=== PATIENT | male | born 1955 | race Caucasian/White ===

== ENCOUNTER 2020-03-30 06:30 | Outpatient (RCR) | payer BC, OTHER ==
[~2020-03-30] VITALS: Ht 182.9 cm; Wt 70.5 kg
[~2020-03-30 06:30] MED LIST: AMLO5TAB9 PO; APIX5TAB PO; SILD25TA PO; TADA5TAB2 PO
== END 2020-03-30 15:43 | disposition home or self-care (01) ==
LOC: PREOP 06:30
PROVIDERS: ATTEND Surgery
DX: Z01.818 Encounter for other preprocedural examination (principal); Z11.59 Encounter for screening for other viral diseases
CPT/HCPCS: 87635

== ENCOUNTER 2020-05-04 09:21 | Outpatient (RCR) | payer OTHER ==
[~2020-05-04] VITALS: Ht 182 cm; Wt 70.4 kg
== END 2020-05-04 12:53 | disposition home or self-care (01) ==
LOC: PREOP 09:21
PROVIDERS: ATTEND Surgery
DX: Z01.818 Encounter for other preprocedural examination (principal); Z11.59 Encounter for screening for other viral diseases
CPT/HCPCS: 87635

== ENCOUNTER 2020-05-08 07:47 | Day surgery (SDC) | payer OTHER ==
[2020-05-08] VITALS (11 sets, daily range): BP systolic 119–180; BP diastolic 69–96
[~2020-05-08] VITALS: Ht 182 cm; Wt 70.4 kg
[2020-05-08] MEDS ORDERED: LACTATED RINGERS 1,000 ML IV ONE (07:52)
[2020-05-08] MEDS ORDERED: LACTATED RINGERS 1,000 ML IV STA (07:57)
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
--- OUTSIDE RECORDS SUMMARY | 2020-05-08 08:01 | XMS REPORT ---
Author Author Karrie ROGERS Organization 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 248265962 Problem Vasculogenic erectile dysfun ction, 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 Active 979485787 Problem Other cardiac arrhythmia I49.8 Activ e [id number] ALLERGIES No Information ENCOUNTERS Encounter Location Date Diagnosis [place] [address] [address] Nov, [place] [address] [address] Nov, [place] [address] [address] Oct, Erectile dysfunction, unspecified erecti le dysfunction type N52.9 [place] [address] [address] Apr, Vasculogenic erectile dysfunction, unspe cified vasculogenic erectile dysfunction type N52.9 [place] [address] [address] Oct, Atrial fibrillation, chronic I48.2 and E rectile dysfunction, unspecified erectile dysfunction type N52.9 [place] [address] [address] Aug, [place] [address] [address] March, Hypertension, benign I10 [place] [address] [address] March, Hypertension, benign I10 [place] [address] [address] Dec, [place] [address] [address] Nov, Other cardiac arrhythmia I49.[address] [address] Apr, Vasculogenic erectile dysfunction, unspe cified vasculogenic erectile dysfunction type N52.9 [place] [address] [address] Feb, [address] [address] Oct, Combined arterial insufficiency and anthony charlotte-venous occlusive erectile dysfunction N52.[address] [address] Oct, Atrial fibrillation, chronic I48.2 and E ssential (primary) hypertension I10 [address] [address] Sep, Encounter for immunization Z23 [address] [address] Jul, Essential hypertension I10 and Chronic a trial fibrillation I48.[address] [address] Jun, [address] [address] May, Basal cell carcinoma of skin of trunk, e xcept scrotum 173.51 ; Family history of colon cancer V16.0 and ED (erectile dysfunction) 607.[address] [place] [address] May, [facility] history of colon cancer V16.0 [facility] [address] [id number] [place] [address] May, Family history of colon cancer V16.0 and Erectile dysfunction 607.84 [facility] [address] [place] [id number] [place] [address] Apr, [facility] [id number] [place] [address] Feb, [facility] [address] [place] [address] [id number] [place] [address] Dec, [facility] [address] [place] [address] [id number] [place] [address] Dec, [facility] [address] [place] [address] [id number] [place] [address] Sep, [facility] [address] [place] [address] [id number] [place] [address] Sep, [facility] [address] [id number] [place] [address] Aug, [facility] [id number] [place] [address] Aug, [facility] [address] [id number] [place] [address] Aug, [facility] [address] [address] [id number] [place] [address] Aug, [facility] [address] [id number] [place] [address] Aug, [facility] [address] [place] [id number] [place] [address] Aug, [facility] [address] [place] [address] [id number] [place] [address] Feb, [facility] [address] [place] [id number] [place] [address] Feb, [facility] [address] [id number] [place] [address] Dec, [facility] [address] [id number] [place] [address] Dec, [facility] [address] [id number] [place] [address] Oct, [facility] [address] [id number] [place] [address] Oct, [facility] [address] [id number] [place] [address] Sep, [facility] [address] [id number] [place] [address] Sep, [facility] [address] [id number] [place] [address] Aug, [facility] [address] [place] [id number] [place] [address] Aug, [facility] [address] [id number] [place] [address] Jun, [facility] [address] [id number] [place] [address] March, [facility] [address] [id number] [place] [address] March, [facility] [address] [id number] [place] [address] March, [facility] [address] [id number] [place] [address] March, [facility] [address] [id number] [place] [address] March, [facility] [address] [id number] [place] [address] Feb, [facility] [address] [id number] [place] [address] Dec, [facility] [address] [id number] [place] [address] Nov, [facility] [address] [id number] [place] [address] Aug, [facility] [address] [id number] [place] [address] Aug, [facility] [address] [id number] [place] [address] Jun, [facility] [address] [place] [id number] [place] [address] Jun, [facility] [address] [id number] [place] [address] Jun, [facility] [address] [place] [id number] [place] [address] Jun, [facility] [address] [id number] [place] [address] Apr, [facility] [address] [place] [id number] [place] [address] Apr, [facility] [address] [id number] [place] [address] Feb, [facility] [address] [id number] [place] [address] Feb, IMMUNIZATIONS No Known Immunizations SOCIAL HISTORY [...]
--- OUTSIDE RECORDS SUMMARY | 2020-05-08 08:01 | XMS REPORT ---
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 023971393 Problem Vasculogenic erectile dysfun ction, 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 Active 201211072 Problem Other cardiac arrhythmia I49.8 Activ e [id number] ALLERGIES No Information ENCOUNTERS Encounter Location Date Diagnosis [place] [address] [address] Nov, [place] [address] [address] Nov, [place] [address] [address] Oct, Erectile dysfunction, unspecified erecti le dysfunction type N52.9 [place] [address] [address] Apr, Vasculogenic erectile dysfunction, unspe cified vasculogenic erectile dysfunction type N52.9 [place] [address] [address] Oct, Atrial fibrillation, chronic I48.2 and E rectile dysfunction, unspecified erectile dysfunction type N52.9 [place] [address] [address] Aug, [place] [address] [address] March, Hypertension, benign I10 [place] [address] [address] March, Hypertension, benign I10 [place] [address] [address] Dec, [place] [address] [address] Nov, Other cardiac arrhythmia I49.[address] [address] Apr, Vasculogenic erectile dysfunction, unspe cified vasculogenic erectile dysfunction type N52.9 [place] [address] [address] Feb, [address] [address] Oct, Combined arterial insufficiency and anthony charlotte-venous occlusive erectile dysfunction N52.[address] [address] Oct, Atrial fibrillation, chronic I48.2 and E ssential (primary) hypertension I10 [address] [address] Sep, Encounter for immunization Z23 [address] [address] Jul, Essential hypertension I10 and Chronic a trial fibrillation I48.[address] [address] Jun, [address] [address] May, Basal cell carcinoma of skin of trunk, e xcept scrotum 173.51 ; Family history of colon cancer V16.0 and ED (erectile dysfunction) 607.[address] [place] [address] May, Family history of colon cancer V16.0 [facility] [address] [id number] [place] [address] May, Family history of colon cancer V16.0 and Erectile dysfunction 607.84 [facility] [address] [id number] [place] [address] Apr, [facility] [address] [place] [id number] [place] [address] Feb, [facility] [address] [place] [address] [id number] [place] [address] Dec, [facility] [address] [place] [id number] [place] [address] Dec, [facility] [address] [place] [address] [id number] [place] [address] Sep, [facility] [address] [place] [address] [id number] [place] [address] Sep, [facility] [address] [place] [id number] [place] [address] Aug, [facility] [address] [place] [address] [id number] [place] [address] Aug, [facility] [address] [place] [id number] [place] [address] Aug, [facility] [address] [place] [id number] [place] [address] Aug, [facility] [address] [id number] [place] [address] Aug, [facility] [address] [place] [id number] [place] [address] Aug, [facility] [address] [place] [id number] [place] [address] Feb, [facility] [address] [place] [address] [id number] [place] [address] Feb, [facility] [address] [id number] [place] [address] Dec, [facility] [address] [id number] [place] [address] Dec, [facility] [address] [id number] [place] [address] Oct, [facility] [address] [id number] [place] [address] Oct, [facility] [address] [id number] [place] [address] Sep, [facility] [address] [id number] [place] [address] Sep, [facility] [address] [id number] [place] [address] Aug, [facility] [address] [place] [id number] [place] [address] Aug, [facility] [address] [id number] [place] [address] Jun, [facility] [address] [id number] [place] [address] March, [facility] [address] [id number] [place] [address] March, [facility] [address] [id number] [place] [address] March, [facility] [address] [id number] [place] [address] March, [facility] [address] [id number] [place] [address] March, [facility] [address] [id number] [place] [address] Feb, [facility] [address] [id number] [place] [address] Dec, [facility] [address] [id number] [place] [address] Nov, [facility] [address] [id number] [place] [address] Aug, [facility] [address] [id number] [place] [address] Aug, [facility] [address] [id number] [place] [address] Jun, [facility] [id number] [place] [address] Jun, [facility] [address] [id number] [place] [address] Jun, [facility] [address] [id number] [place] [address] Jun, [facility] [address] [id number] [place] [address] Apr, [facility] [address] [place] [id number] [place] [address] Apr, [facility] [address] [id number] [place] [address] Feb, [facility] [address] [id number] [place] [address] Feb, IMMUNIZATIONS No Known Immunizations SOCIAL HISTORY [...]
--- OUTSIDE RECORDS SUMMARY | 2020-05-08 08:01 | XMS REPORT ---
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 [address] [place] [id number] [address] [place] [address] Jan, [facility] [address] [place] [id number] [place] [phone] Nov, [facility] [address] [place] [id number] [place] [address] Nov, [place] [address] [place] [id number] [address] [place] [phone] Oct, Erectile dysfunction, unspec ified erectile dysfunction type N52.9 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 [address] [facility] [id number] [address] [place] [address] Oct, Atrial fibrillation, chronic I48.2 and Erectile dysfunction, unspecified erectile dysfunction type N52.9 [facility] [address] [facility] [id number] [address] [place] [phone] Aug, [facility] [address] [facility] [id number] [address] [place] [address] March, Hypertension, benign I10 [place] [address] [facility] [id number] [place] [phone] March, Hypertension, benign I10 [facility] [address] [place] [id number] [address] [place] [phone] Dec, [facility] [address] [facility] [id number] [address] [place] [phone] Nov, Other cardiac arrhythmia I49 .8 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 [address] [facility] [id number] [address] [place] [phone] 15 Oct, 2016 Atrial fibrillation, chronic I48.2 and Essential (primary) hypertension I10 [facility] [address] [facility] [id number] [address] [place] [address] 17 Sep, 2016 Encounter for immunization Z 23 [facility] [address] [place] [id number] [address] [place] [phone] Jul, Essential hypertension I10 a nd Chronic atrial fibrillation I48.2 [facility] [address] [facility] [id number] [address] [place] [phone] Jun, [facility] [address] [facility] [id number] [address] [place] [address] May, Basal cell carcinoma of skin of trunk, except scrotum 173.51 ; Family history of colon cancer V16.0 and ED (erectile dysfunction) 607.84 [facility] [address] [id number] [address] [place] [phone] May, Family history of colon canc er V16.0 [facility] [address] [facility] [id number] [address] [place] [phone] May, Family history of colon canc er V16.0 and Erectile dysfunction 607.84 [facility] [address] [facility] [id number] [address] [place] [address] Apr, [facility] [address] [facility] [id number] [address] [place] [phone] Feb, [facility] [address] [facility] [id number] [address] [place] [phone] Dec, [facility] [address] [facility] [id number] [address] [place] [phone] Dec, [facility] [address] [facility] [id number] [address] [place] [phone] Sep, [facility] [address] [facility] [id number] [address] [place] [phone] Sep, [facility] [address] [facility] [id number] [address] [place] [address] Aug, [facility] [address] [facility] [id number] [address] [place] [address] Aug, [facility] [address] [facility] [id number] [address] [place] [phone] Aug, [facility] [address] [id number] [address] [place] [address], [place] [address] Aug, [facility] [address] [id number] [address] [place] [address], [place] [address] Aug, [facility] [address] [id number] [address] [place] [address], [place] [address] Aug, [facility] [address] [id number] [address] [place] [address], [place] [address] Feb, [facility] [address] [id number] [address] [place] [address], [place] [address] Feb, [facility] [address] [id number] [address] [place] [address], [place] [address] Dec, [facility] [address] [id number] [address] [place] [address], [place] [address] Dec, [facility] [address] [id number] [address] [place] [address], [place] [address] Oct, [facility] [address] [id number] [address] [place] [address], [place] [address] Oct, [facility] [address] [id number] [address] [place] [address], [place] [address] Sep, [facility] [address] [id number] [address] [place] [address], [place] [address] Sep, [facility] [address] [id number] [address] [place] [address], [place] [address] Aug, [facility] [address] [id number] [address] [place] [address], [place] [address] Aug, [facility] [address] [id number] [address] [place] [address], [place] [address] Jun, [facility] [address] [id number] [address] [place] [address], [place] [address] March, [facility] [address] [id number] [address] [place] [address], [place] [address] March, [facility] [address] [id number] [address] [place] [address], [place] [address] March, [facility] [address] [id number] [address] [place] [address], [place] [address] March, [facility] [address] [id number] [address] [place] [address], [place] [address] March, [facility] [address] [id number] [address] [place] [address], [place] [address] Feb, [facility] [address] [id number] [address] [place] [address], [place] [address] Dec, [facility] [address] [id number] [address] [place] [address], [place] [address] Nov, [facility] [address] [id number] [address] [place] [address], [place] [address] Aug, [facility] [address] [id number] [address] [place] [address], [place] [address] Aug, [facility] [address] [id number] [address] [place] [address], [place] [address] Jun, [facility] [address] [id number] [address] [place] [address], [place] [address] Jun, [facility] [address] [id number] [address] [place] [address], [place] [address] Jun, [facility] [address] [id number] [address] [place] [address], [place] [address] Jun, [facility] [address] [id number] [address] [place] [address], [place] [address] Apr, [facility] [address] [id number] [address] [place] [address], [place] [address] Apr, [facility] [address] [id number] [address] [place] [address], [place] [address] Feb, [facility] [address] [facility] [id number] [address] [place] [address] Feb, IMMUNIZATIONS No Known Immunizations SOCIAL HISTORY Never Assessed REASON FOR VISIT PLAN OF CARE VITAL SIGNS Height 72 in 2012-05-03 Weight 153.44 lbs 2012-05-03 Temperature 97.4 degrees Fahrenheit 2012-05-03 Heart Rate 70 bpm 2012-05-03 Respiratory Rate 18 2012-05-03 Blood pressure systolic 110 mmHg 2012-05-03 Blood pressure diastolic 90 mmHg 2012-05-03 MEDICATIONS Unknown Medications RESULTS No Results PROCEDURES Procedure Date Ordered Result Body Site COMPLETE CBC W/AUTO DIFF WBC May 03, 2012 ASSAY THYROID STIM HORMONE May 03, 2012 VENIPUNCT, ROUTINE* May 03, 2012 INSTRUCTIONS MEDICATIONS ADMINISTERED No Known Medications MEDICAL [...]
--- OUTSIDE RECORDS SUMMARY | 2020-05-08 08:01 | XMS REPORT ---
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 Active 860987676 Problem Vasculogenic erectile dysfun ction, 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 Active 283131380 Problem Other cardiac arrhythmia I49.8 Activ e [id number] ALLERGIES No Information ENCOUNTERS Encounter Location Date Diagnosis [place] [address] [place] [id number] [address] [place] [address] Apr, Vasculogenic erectile dysfun ction, 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 [facility] [address] [place] [id number] [address] [place] [address] Oct, Atrial fibrillation, chronic I48.2 and Erectile dysfunction, unspecified erectile dysfunction type N52.9 [facility] [address] [facility]NOTE 3] [id number] [address] [place] [address] Aug, [facility] [address] [place] [id number] [address] [place] [address] March, Hypertension, benign I10 [facility] [address] [place] [id number] [address] [place] [address] March, Hypertension, benign I10 [facility] [address] [place] [id number] [address] [place] [address] Dec, [place] [address] [facility]NOTE 3] [id number] [address] [place] [address] Nov, Other cardiac arrhythmia I49 .8 [place] [address] [facility]NOTE 3] [id number] [address] [place] [address] Apr, Vasculogenic erectile dysfun ction, 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 [place] [address] [place] [id number] [place] [address] Feb, [place] [address] [place] [id number] [place] [address] Oct, 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 [place] [address] [place] [id number] [place] [address] 15 Oct, 2016 Atrial fibrillation, chronic I48.2 and Essential (primary) hypertension I10 [place] [address] [address] Sep, Encounter for immunization Z 23 [place] [address] [place] [id number] [place] [phone] 08 Jul, 2016 Essential hypertension I10 a nd Chronic atrial fibrillation I48.2 [place] [address] [place] [id number] [place] [address] Jun, [place] [address] [place] [id number] [place] [address] May, Basal cell carcinoma of skin of trunk, except scrotum 173.51 ; Family history of colon cancer V16.0 and ED (erectile dysfunction) 607.84 [place] [address] [place] [id number] [address] [place] [address] May, Family history of colon canc er V16.0 [place] [address] [place] [id number] [address] [place] [address] May, Family history of colon canc er V16.0 and Erectile dysfunction 607.84 [facility] [address] [id number] [address] [place] [address] Apr, [facility] [address] [id number] [address] [place] [address] Feb, [facility] [address] [id number] [address] [place] [address] Dec, [facility] [address] [id number] [address] [place] [address] Dec, [facility] [address] [id number] [address] [place] [address] Sep, [facility] [address] [id number] [address] [place] [address] Sep, [facility] [address] [id number] [address] [place] [address] Aug, [facility] [address] [id number] [address] [place] [phone] Aug, [facility] [address] [id number] [address] [place] [address] Aug, [facility] [address] [id number] [address] [place] [address] Aug, [facility] [address] [id number] [address] [place] [address] Aug, [facility] [address] [id number] [address] [place] [phone] Aug, [facility] [address] [id number] [address] [place] [phone] Feb, [facility] [address] [id number] [address] [place] [phone] Feb, [facility] [address] [id number] [address] [place] [phone] Dec, [facility] [address] [id number] [address] [place] [address], [place] [address] Dec, [facility] [address] [id number] [address] [place] [address], [place] [address] Oct, [facility] [address] [id number] [address] [place] [address], [place] [address] Oct, [facility] [address] [id number] [address] [place] [address], [place] [address] Sep, [facility] [address] [id number] [address] [place] [address], [place] [address] Sep, [facility] [address] [id number] [address] [place] [address], [place] [address] Aug, [facility] [address] [id number] [address] [place] [address], [place] [address] Aug, [facility] [address] [id number] [address] [place] [address], [place] [address] Jun, [facility] [address] [id number] [address] [place] [address], [place] [address] March, [facility] [address] [id number] [address] [place] [address], [place] [address] March, [facility] [address] [id number] [address] [place] [address], [place] [address] March, [facility] [address] [id number] [address] [place] [address], [place] [address] March, [facility] [address] [id number] [address] [place] [address], [place] [address] March, [facility] [address] [id number] [address] [place] [address], [place] [address] Feb, [facility] [address] [id number] [address] [place] [address], [place] [address] Dec, [facility] [address] [id number] [address] [place] [address], [place] [address] Nov, [facility] [address] [id number] [address] [place] [address] Aug, [facility] [address] [id number] [address] [place] [address] Aug, [facility] [address] [id number] [address] [place] [address] Jun, [facility] [address] [id number] [address] [place] [address] Jun, [facility] [address] [id number] [address] [place] [address] Jun, [facility] [address] [id number] [address] [place] [address] Jun, [facility] [address] [id number] [address] [place] [address] Apr, [facility] [address] [id number] [address] [place] [address] Apr, [facility] [address] [id number] [address] [place] [address] Feb, [facility] [address] [id number] [address] [place] [phone] Feb, IMMUNIZATIONS No Known Immunizations SOCIAL HISTORY Never Assessed REASON FOR VISIT PLAN OF CARE VITAL SIGNS Height 72 in 2014-09-22 Weight 154 lbs 2014-09-22 Temperature 98 degrees Fahrenheit 2014-09-22 Heart Rate 70 bpm 2014-09-22 Respiratory Rate 18 2014-09-22 Blood pressure systolic 140 mmHg 2014-09-22 Blood pressure diastolic 70 mmHg 2014-09-22 MEDICATIONS No Known Medications RESULTS No Results [...]
--- OUTSIDE RECORDS SUMMARY | 2020-05-08 08:01 | XMS REPORT ---
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 305491479 Problem Vasculogenic erectile dysfun ction, 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 Active 265118725 Problem Other cardiac arrhythmia I49.8 Activ e [id number] ALLERGIES No Information ENCOUNTERS Encounter Location Date Diagnosis [place] [address] [address] 14 Feb, 2020 Hypertension, benign I10 [place] [address] [address] [place] [id number] [address] [place] [address] 13 Feb, 2020 Hypertension, benign I10 and Erectile dysfunction, unspecified erectile dysfunction type N52.9 [facility] [address] [place] [id number] [address] [place] [address] Jan, [facility] [address] [place] [id number] [address] [place] [address] Nov, [facility] [address] [place] [id number] [address] [place] [address] Nov, [facility] [address] [place] [id number] [address] [place] [address] Oct, Erectile dysfunction, unspec ified erectile dysfunction type N52.9 [facility] [address] [facility] [id number] [address] [place] [address] Apr, Vasculogenic erectile dysfun ction, 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 [facility] [address] [facility] [id number] [address] [place] [address] Oct, Atrial fibrillation, chronic I48.2 and Erectile dysfunction, unspecified erectile dysfunction type N52.9 [facility] [address] [facility] [id number] [address] [place] [address] Aug, [facility] [address] [facility] [id number] [address] [place] [address] March, Hypertension, benign I10 [facility] [address] [facility] [id number] [address] [place] [address] March, Hypertension, benign I10 [facility] [address] [facility] [id number] [address] [place] [address] Dec, [facility] [address] [facility] [id number] [address] [place] [address] Nov, Other cardiac arrhythmia I49 .8 [facility] [address] [facility] [id number] [address] [place] [address] Apr, Vasculogenic erectile dysfun ction, 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 [facility] [address] [facility] [id number] [address] [place] [address] Feb, [facility] [address] [facility] [id number] [address] [place] [address] Oct, 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 [facility] [address] [facility] [id number] [address] [place] [address] Oct, Atrial fibrillation, chronic I48.2 and Essential (primary) hypertension I10 [facility] [address] [facility] [id number] [address] [place] [address] Sep, Encounter for immunization Z 23 [facility] [address] [id number] [address] [place] [id number] 08 Jul, 2016 Essential hypertension I10 a nd Chronic atrial fibrillation I48.2 [facility] [address] [facility] [id number] [address] [place] [phone] Jun, [facility] [address] [facility] [id number] [address] [place] [address] May, Basal cell carcinoma of skin of trunk, except scrotum 173.51 ; Family history of colon cancer V16.0 and ED (erectile dysfunction) 607.84 [facility] [address] [facility] [id number] [address] [place] [address] May, Family history of colon canc er V16.0 [facility] [address] [facility] [id number] [address] [place] [address] May, Family history of colon canc er V16.0 and Erectile dysfunction 607.84 [facility] [address] [id number] [address] [place] [address] Apr, [facility] [address] [facility] [id number] [address] [place] [address] Feb, [facility] [address] [facility] [id number] [address] [place] [address] Dec, [facility] [address] [facility] [id number] [address] [place] [address] Dec, [facility] [address] [facility] [id number] [address] [place] [address] Sep, [facility] [address] [facility] [id number] [address] [place] [address] Sep, [facility] [address] [facility] [id number] [address] [place] [address] Aug, [facility] [address] [facility] [id number] [address] [place] [address] Aug, [facility] [address] [id number] [address] [place] [address], [place] [address] Aug, [facility] [address] [id number] [address] [place] [address], [place] [address] Aug, [facility] [address] [id number] [address] [place] [address], [place] [address] Aug, [facility] [address] [id number] [address] [place] [address], [place] [address] Aug, [facility] [address] [id number] [address] [place] [address], [place] [address] Feb, [facility] [address] [id number] [address] [place] [address], [place] [address] Feb, [facility] [address] [id number] [address] [place] [address], [place] [address] Dec, [facility] [address] [id number] [address] [place] [address], [place] [address] Dec, [facility] [address] [id number] [address] [place] [address], [place] [address] Oct, [facility] [address] [id number] [address] [place] [address], [place] [address] Oct, [facility] [address] [id number] [address] [place] [address], [place] [address] Sep, [facility] [address] [id number] [address] [place] [address], [place] [address] Sep, [facility] [address] [id number] [address] [place] [address], [place] [address] Aug, [facility] [address] [id number] [address] [place] [address], [place] [address] Aug, [facility] [address] [id number] [address] [place] [address], [place] [address] Jun, [facility] [address] [id number] [address] [place] [address], [place] [address] March, [facility] [address] [id number] [address] [place] [address], [place] [address] March, [facility] [address] [id number] [address] [place] [address], [place] [address] March, [facility] [address] [id number] [address] [place] [address], [place] [address] March, [facility] [address] [id number] [address] [place] [address], [place] [address] March, [facility] [address] [id number] [address] [place] [address], [place] [address] Feb, [facility] [address] [id number] [address] [place] [address], [place] [address] Dec, [facility] [address] [id number] [address] [place] [address], [place] [address] Nov, [facility] [address] [id number] [address] [place] [address], [place] [address] Aug, [facility] [address] [id number] [address] [place] [address], [place] [address] Aug, [facility] [address] [id number] [address] [place] [address], [place] [address] Jun, [facility] [address] [id number] [address] [place] [address], [place] [address] Jun, [facility] [address] [id number] [address] [place] [address], [place] [address] Jun, [facility] [address] [id number] [address] [place] [address], [place] [address] Jun, [facility] [address] [id number] [address] [place] [address], [place] [address] Apr, [facility] [address] [id number] [address] [place] [address], [place] [address] Apr, [facility] [address] [id number] [address] [address] Feb, [facility] [address] [facility] [id number] [place] [address] Feb, IMMUNIZATIONS No Known Immunizations SOCIAL HISTORY [...]
--- OUTSIDE RECORDS SUMMARY | 2020-05-08 08:01 | XMS REPORT ---
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 Active 084454583 Problem Vasculogenic erectile dysfun ction, 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 Active 977693807 Problem Other cardiac arrhythmia I49.8 Activ e [id number] ALLERGIES No Information ENCOUNTERS Encounter Location Date Diagnosis [place] [address] [address] Nov, [place] [address] [address] Nov, [place] [address] [address] Oct, Erectile dysfunction, unspecified erecti le dysfunction type N52.9 [place] [address] [address] Apr, Vasculogenic erectile dysfunction, unspe cified vasculogenic erectile dysfunction type N52.9 [place] [address] [address] Oct, Atrial fibrillation, chronic I48.2 and E rectile dysfunction, unspecified erectile dysfunction type N52.9 [place] [address] [address] Aug, [place] [address] [address] March, Hypertension, benign I10 [place] [address] [address] March, Hypertension, benign I10 [place] [address] [address] Dec, [place] [address] [address] Nov, Other cardiac arrhythmia I49.[address] [address] Apr, Vasculogenic erectile dysfunction, unspe cified vasculogenic erectile dysfunction type N52.9 [place] [address] [address] Feb, [address] [address] Oct, Combined arterial insufficiency and anthony charlotte-venous occlusive erectile dysfunction N52.[address] [address] Oct, Atrial fibrillation, chronic I48.2 and E ssential (primary) hypertension I10 [address] [address] Sep, Encounter for immunization Z23 [address] [address] Jul, Essential hypertension I10 and Chronic a trial fibrillation I48.[address] [address] Jun, [address] [address] May, Basal cell carcinoma of skin of trunk, e xcept scrotum 173.51 ; Family history of colon cancer V16.0 and ED (erectile dysfunction) 607.[address] [place] [address] May, Family history of colon cancer V16.0 [facility] [address] [id number] [place] [address] May, Family history of colon cancer V16.0 and Erectile dysfunction 607.84 [facility] [address] [place] [id number] [place] [address] Apr, [facility] [address] [place] [id number] [place] [address] Feb, [facility] [address] [place] [id number] [place] [address] Dec, [facility] [address] [place] [id number] [place] [address] Dec, [facility] [address] [place] [id number] [place] [address] Sep, [facility] [address] [place] [id number] [place] [address] Sep, [facility] [address] [place] [id number] [place] [address] Aug, [facility] [address] [place] [id number] [place] [address] Aug, [facility] [address] [place] [id number] [place] [address] Aug, [facility] [address] [place] [id number] [place] [address] Aug, [facility] [address] [id number] [place] [address] Aug, [facility] [address] [place] [id number] [place] [address] Aug, [facility] [address] [place] [id number] [place] [address] Feb, [facility] [address] [place] [id number] [place] [address] Feb, [facility] [address] [id number] [place] [address] Dec, [facility] [address] [id number] [place] [address] Dec, [facility] [address] [id number] [place] [address] Oct, [facility] [address] [id number] [place] [address] Oct, [facility] [address] [id number] [place] [address] Sep, [facility] [address] [id number] [place] [address] Sep, [facility] [address] [id number] [place] [address] Aug, [facility] [address] [place] [id number] [place] [address] Aug, [facility] [address] [id number] [place] [address] Jun, [facility] [address] [id number] [place] [address] March, [facility] [address] [id number] [place] [address] March, [facility] [address] [id number] [place] [address] March, [facility] [address] [id number] [place] [address] March, [facility] [address] [id number] [place] [address] March, [facility] [address] [id number] [place] [address] Feb, [facility] [address] [id number] [place] [address] Dec, [facility] [address] [id number] [place] [address] Nov, [facility] [address] [id number] [place] [address] Aug, [facility] [address] [id number] [place] [address] Aug, [facility] [address] [id number] [place] [address] Jun, [facility] [address] [place] [id number] [place] [address] Jun, [facility] [address] [id number] [place] [address] Jun, [facility] [address] [place] [id number] [place] [address] Jun, [facility] [address] [id number] [place] [address] Apr, [facility] [address] [place] [id number] [place] [address] Apr, [facility] [address] [id number] [place] [address] Feb, [facility] [address] [id number] [place] [address] Feb, IMMUNIZATIONS No Known Immunizations SOCIAL HISTORY [...]
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
--- OUTSIDE RECORDS SUMMARY | 2020-05-08 08:02 | XMS REPORT ---
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 Active 597251211 Problem Essential (primary) hypertension I10 Active 08029229 Problem Other cardiac arrhythmia I49.8 Activ e 43792375 Problem Vasculogenic erectile dysfun ction, 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 Active 558703615 ALLERGIES No Known Allergies ENCOUNTERS Encounter Location Date Diagnosis [facility] [address] [address] Oct, Atrial fibrillation, chronic I48.2 and Erectile dysfunction, unspecified erectile dysfunction type N52.9 [facility] [address] [id number] [address] [place] [address] Aug, [facility] [address] [id number] [address] [place] [address] March, Hypertension, benign I10 [facility] [address] [id number] [address] [place] [address] March, Hypertension, benign I10 [facility] [address] [id number] [address] [place] [address] Dec, [facility] [address] [id number] [address] [place] [address] 18 Dmitry, 2018 Other cardiac arrhythmia I49 .8 [place] [address] [address] [facility] [id number] [address] [place] [address] Apr, Vasculogenic erectile dysfun ction, 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 [place] [address] [address] [facility] [id number] [address] [place] [address] Feb, [place] [address] [address] [place] [id number] [address] [place] [address] Oct, 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 [place] [address] [address] [facility] [id number] [address] [place] [address] Oct, Atrial fibrillation, chronic I48.2 and Essential (primary) hypertension I10 [place] [address] [address] [place] [id number] [address] [place] [address] Sep, Encounter for immunization Z 23 [place] [address] [place] [id number] [address] [place] [address] Jul, Essential hypertension I10 a nd Chronic atrial fibrillation I48.2 [place] [address] [place] [id number] [address] [place] [address] Jun, [place] [address] [place] [id number] [address] [place] [address] May, Basal cell carcinoma of skin of trunk, except scrotum 173.51 ; Family history of colon cancer V16.0 and ED (erectile dysfunction) 607.84 [place] [address] [address] [facility] [id number] [address] [place] [address] May, Family history of colon canc er V16.0 [place] [address] [address] [place] [id number] [address] [place] [address] May, Family history of colon canc er V16.0 and Erectile dysfunction 607.84 [place] [address] [address] [place] [id number] [address] [place] [address] Apr, [facility] [address] [id number] [address] [place] [address], [place] [address] Feb, [facility] [address] [id number] [address] [place] [address], [place] [address] Dec, [facility] [address] [id number] [address] [place] [address], [place] [address] Dec, [facility] [address] [id number] [address] [place] [address], [place] [address] Sep, [facility] [address] [id number] [address] [place] [address], [place] [address] Sep, [facility] [address] [id number] [address] [place] [address], [place] [address] Aug, [facility] [address] [id number] [address] [place] [address], [place] [address] Aug, [facility] [address] [id number] [address] [place] [address], [place] [address] Aug, [facility] [address] [id number] [address] [place] [address], [place] [address] Aug, [facility] [address] [id number] [address] [place] [address], [place] [address] Aug, [facility] [address] [id number] [address] [place] [address], [place] [address] Aug, [facility] [address] [id number] [address] [place] [address], [place] [address] Feb, [facility] [address] [id number] [address] [place] [address], [place] [address] Feb, [facility] [address] [id number] [address] [place] [address], [place] [address] Dec, [facility] [address] [id number] [address] [place] [address] Dec, [facility] [address] [id number] [address] [place] [address] Oct, [facility] [address] [id number] [address] [place] [address], [place] [address] Oct, [facility] [address] [id number] [address] [place] [address], [place] [address] Sep, [facility] [address] [id number] [address] [place] [address], [place] [address] Sep, [facility] [address] [id number] [address] [place] [address], [place] [address] Aug, [facility] [address] [id number] [address] [place] [address], [place] [address] Aug, [facility] [address] [id number] [address] [place] [address], [place] [address] Jun, [facility] [address] [id number] [address] [place] [address], [place] [address] March, [facility] [address] [id number] [address] [place] [address], [place] [address] March, [facility] [address] [id number] [address] [place] [address], [place] [address] March, [facility] [address] [id number] [address] [place] [address], [place] [address] March, [facility] [address] [id number] [address] [place] [address], [place] [address] March, [facility] [address] [id number] [address] [place] [address], [place] [address] Feb, [facility] [address] [id number] [address] [place] [address], [place] [address] Dec, [facility] [address] [id number] [address] [place] [address], [place] [address] Nov, [facility] [address] [id number] [address] [place] [address], [place] [address] Aug, [facility] [address] [id number] [address] [place] [address] Aug, [facility] [address] [id number] [address] [place] [address] Jun, [facility] [address] [id number] [address] [place] [address] Jun, [facility] [address] [id number] [address] [place] [address] Jun, [facility] [address] [id number] [address] [place] [address] Jun, [facility] [address] [id number] [address] [place] [address] Apr, [facility] [address] [id number] [address] [place] [address] Apr, [facility] [address] [id number] [address] [place] [address] Feb, [facility] [address] [id number] [address] [place] [address] Feb, IMMUNIZATIONS No Known Immunizations SOCIAL HISTORY Never Assessed REASON FOR VISIT ED f/u - Agnes Saini MA f/u PLAN OF CARE VITAL SIGNS Height 72 in 2018-10-27 Weight 161.9 lbs 2018-10-27 Temperature 97.5 degrees Fahrenheit 2018-10-27 Heart Rate 77 bpm 2018-10-27 Respiratory Rate 18 2018-10-27 Oximetry 97 % 2018-10-27 BMI 21.96 kg/m2 2018-10-27 Blood pressure systolic 142 mmHg 2018-10-27 Blood pressure diastolic 68 mmHg 2018-10-27 MEDICATIONS Medication Instructions Dosage Frequency Start Date End Date Duration S tatus Cialis 5MG Oral Once a day 1 tablet 24h Acti ve Eliquis 5 mg Orally 2 times a day 12h Active Amlodipine Besylate 5 mg Orally Once a day 1 tablet 24h 30 days Active RESULTS No Results PROCEDURES No Known procedures [...]
--- OUTSIDE RECORDS SUMMARY | 2020-05-08 08:02 | XMS REPORT ---
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 Active 861264542 Problem Vasculogenic erectile dysfun ction, 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 Active 287905833 Problem Other cardiac arrhythmia I49.8 Activ e [id number] ALLERGIES No Information ENCOUNTERS Encounter Location Date Diagnosis [facility] [address] [id number] [address] [place] [address] Oct, Atrial fibrillation, chronic I48.2 and Erectile dysfunction, unspecified erectile dysfunction type N52.9 [facility] [address] [id number] [address] [place] [address] Aug, [facility] [address] [id number] [address] [place] [address] March, Hypertension, benign I10 [facility] [address] [place] [id number] [address] [place] [address] March, Hypertension, benign I10 [facility] [address] [id number] [address] [place] [address] Dec, [facility] [address] [id number] [address] [place] [address] Nov, Other cardiac arrhythmia I49 .8 [facility] [address] [address] Apr, Vasculogenic erectile dysfun ction, 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 [place] [address] [place] [id number] [address] [place] [address] Feb, [place] [address] [address] [facility] [id number] [address] [place] [address] Oct, 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 [place] [address] [address] [facility] [id number] [address] [place] [address] 15 Oct, 2016 Atrial fibrillation, chronic I48.2 and Essential (primary) hypertension I10 [place] [address] [place] [id number] [address] [place] [address] Sep, Encounter for immunization Z 23 [place] [address] [place] [id number] [address] [place] [address] Jul, Essential hypertension I10 a nd Chronic atrial fibrillation I48.2 [place] [address] [address] [facility] [id number] [address] [place] [address] Jun, [place] [address] [place] [id number] [place] [address] May, Basal cell carcinoma of skin of trunk, except scrotum 173.51 ; Family history of colon cancer V16.0 and ED (erectile dysfunction) 607.84 [place] [address] [place] [id number] [address] [place] [address] May, Family history of colon canc er V16.0 [place] [address] [address] [facility] [id number] [address] [place] [address] May, Family history of colon canc er V16.0 and Erectile dysfunction 607.84 [place] [address] [address] [facility] [id number] [address] [place] [address] Apr, [place] [address] [place] [id number] [address] [place] [address] Feb, [facility] [address] [id number] [address] [place] [address], [place] [address] Dec, [facility] [address] [id number] [address] [place] [address], [place] [address] Dec, [facility] [address] [id number] [address] [place] [address], [place] [address] Sep, [facility] [address] [id number] [address] [place] [address], [place] [address] Sep, [facility] [address] [id number] [address] [place] [address], [place] [address] Aug, [facility] [address] [id number] [address] [place] [address], [place] [address] Aug, [facility] [address] [id number] [address] [place] [address], [place] [address] Aug, [facility] [address] [id number] [address] [place] [address], [place] [address] Aug, [facility] [address] [id number] [address] [place] [address], [place] [address] Aug, [facility] [address] [id number] [address] [place] [address] Aug, [facility] [address] [id number] [address] [place] [address], [place] [address] Feb, [facility] [address] [id number] [address] [place] [address] Feb, [facility] [address] [id number] [address] [place] [address], [place] [address] Dec, [facility] [address] [id number] [address] [place] [address], [place] [address] Dec, [facility] [address] [id number] [address] [place] [address], [place] [address] Oct, [facility] [address] [id number] [address] [place] [address], [place] [address] Oct, [facility] [address] [id number] [address] [place] [address], [place] [address] Sep, [facility] [address] [id number] [address] [place] [address], [place] [address] Sep, [facility] [address] [id number] [address] [place] [address], [place] [address] Aug, [facility] [address] [id number] [address] [place] [address], [place] [address] Aug, [facility] [address] [id number] [address] [place] [address], [place] [address] Jun, [facility] [address] [id number] [address] [place] [address], [place] [address] March, [facility] [address] [id number] [address] [place] [address], [place] [address] March, [facility] [address] [id number] [address] [place] [address], [place] [address] March, [facility] [address] [id number] [address] [place] [address], [place] [address] March, [facility] [address] [id number] [address] [place] [address], [place] [address] March, [facility] [address] [id number] [address] [place] [address], [place] [address] Feb, [facility] [address] [id number] [address] [place] [address], [place] [address] Dec, [facility] [address] [id number] [address] [place] [address], [place] [address] Nov, [facility] [address] [id number] [address] [place] [address], [place] [address] Aug, [facility] [address] [id number] [address] [place] [address], [place] [address] Aug, [facility] [address] [id number] [address] [place] [address] Jun, [facility] [address] [id number] [address] [place] [address] Jun, [facility] [address] [id number] [address] [place] [address] Jun, [facility] [address] [id number] [address] [place] [address] Jun, [facility] [address] [id number] [address] [place] [address] Apr, [facility] [address] [id number] [address] [place] [address] Apr, [facility] [address] [id number] [address] [place] [address] Feb, [facility] [address] [id number] [address] [place] [address] Feb, IMMUNIZATIONS No Known Immunizations SOCIAL HISTORY Never Assessed REASON FOR VISIT [facility] [place] PLAN OF CARE VITAL SIGNS MEDICATIONS No [...]
--- OUTSIDE RECORDS SUMMARY | 2020-05-08 08:02 | XMS REPORT ---
Author Author Karrie ROGERS Organization [facility] Address [address] [place] [address] Care Team Providers Care Manager Personal Name Role Phone PHOEBE ROGERS Unavailable PROBLEMS Type Condition ICD9-CM Code [id number] Code Onset Dates Condition S tatus SNOMED Code Assessment Chronic atrial fibrillation I48.2 Jul, 201 6 Active 578309698 Problem Encounter for removal of sutures V58.32 Active 40798309 Assessment Essential hypertension I10 Jul, Act nya 27570539 Problem Hernia of unspecified site o f abdominal cavity without mention of obstruction or gangrene 553.9 Active 5251 5009 Problem Inguinal hernia without ment ion of obstruction or gangrene, bilateral, (not specified as recurrent) 550.92 Active 18560545 Problem Health examination of defined subpopulation V70.5 Active 385194549 Problem Basal cell carcinoma of skin of trunk, except scrotum 173.51 Active 194639302 Problem Umbilical hernia without mention of obstruction or gangren e 553.1 Active 937716964 Problem Psychosexual dysfunction with inhibited sexual excitement 302.72 Active [id number] ALLERGIES Substance Reaction Event Type Date Status N.K.D.A. Unknown Non Drug Allergy Jul, Unknown SOCIAL HISTORY No smoking Hx information available PLAN OF CARE VITAL SIGNS Height 72 in 2016-07-31 Weight 158.8 lbs 2016-07-31 Heart Rate 68 bpm 2016-07-31 Respiratory Rate 18 2016-07-31 BMI 21.53 kg/m2 2016-07-31 Blood pressure systolic 142 mmHg 2016-07-31 Blood pressure diastolic 98 mmHg 2016-07-31 MEDICATIONS Medication Instructions Dosage Frequency Start Date End Date Duration S tatus Cialis 5 MG Orally every 24 hrs 1 tablet 30 Active Cialis 5 MG Orally Once a day 1 tablet 24h Jul, Sep, 30 day(s) Active Eliquis 5 mg Orally 2 times a day 12h Active Amlodipine Besylate 5 MG Orally Once a day 1 tablet 24h Active RESULTS No Results PROCEDURES Procedure Date Ordered Related Diagnosis Body Site Office Visit, Est Pt., Level 3 Jul 31, 2016 IMMUNIZATIONS No Known Immunizations
--- OUTSIDE RECORDS SUMMARY | 2020-05-08 08:02 | XMS REPORT ---
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 Active 450860754 Problem Vasculogenic erectile dysfun ction, 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 Active 502451905 Problem Other cardiac arrhythmia I49.8 Activ e 43034117 ALLERGIES No Information ENCOUNTERS Encounter Location Date Diagnosis [place] [address] [place] [id number] [place] [phone] Apr, Vasculogenic erectile dysfun ction, 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 [facility] [address] [place] [id number] [place] [phone] Oct, Atrial fibrillation, chronic I48.2 and Erectile dysfunction, unspecified erectile dysfunction type N52.9 [facility] [address] [facility] [id number] [address] [place] [phone] Aug, [facility] [address] [id number] [place] [phone] March, Hypertension, benign I10 [facility] [address] [place] [id number] [place] [phone] March, Hypertension, benign I10 [facility] [address] [id number] [place] [phone] Dec, [place] [address] [facility] [id number] [address] [place] [phone] Nov, Other cardiac arrhythmia I49 .8 [place] [address] [facility] [id number] [address] [place] [address] Apr, Vasculogenic erectile dysfun ction, 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 [place] [address] [place] [id number] [place] [phone] Feb, [place] [address] [place] [id number] [place] [address] Oct, 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 [place] [address] [place] [id number] [place] [phone] 15 Oct, 2016 Atrial fibrillation, chronic I48.2 and Essential (primary) hypertension I10 [place] [address] [address] Sep, Encounter for immunization Z 23 [place] [address] [place] [id number] [place] [phone] 08 Jul, 2016 Essential hypertension I10 a nd Chronic atrial fibrillation I48.2 [place] [address] [place] [id number] [place] [phone] Jun, [place] [address] [place] [id number] [place] [phone] May, Basal cell carcinoma of skin of trunk, except scrotum 173.51 ; Family history of colon cancer V16.0 and ED (erectile dysfunction) 607.84 [place] [address] [place] [id number] [place] [phone] May, Family history of colon canc er V16.0 [place] [address] [place] [id number] [place] [address] May, Family history of colon canc er V16.0 and Erectile dysfunction 607.84 [facility] [address] [id number] [address] [place] [phone] Apr, [facility] [address] [id number] [address] [place] [phone] Feb, [facility] [address] [id number] [address] [place] [phone] Dec, [facility] [address] [id number] [address] [place] [phone] Dec, [facility] [address] [id number] [address] [place] [phone] Sep, [facility] [address] [id number] [address] [place] [phone] Sep, [facility] [address] [id number] [address] [place] [phone] Aug, [facility] [address] [id number] [address] [place] [phone] Aug, [facility] [address] [id number] [address] [place] [phone] Aug, [facility] [address] [id number] [address] [place] [phone] Aug, [facility] [address] [id number] [address] [place] [phone] Aug, [facility] [address] [id number] [address] [place] [phone] Aug, [facility] [address] [id number] [address] [place] [phone] Feb, [facility] [address] [id number] [address] [place] [phone] Feb, [facility] [address] [id number] [address] [place] [phone] Dec, [facility] [address] [id number] [address] [place] [address], [place] [address] Dec, [facility] [address] [id number] [address] [place] [address], [place] [address] Oct, [facility] [address] [id number] [address] [place] [address], [place] [address] Oct, [facility] [address] [id number] [address] [place] [address], [place] [address] Sep, [facility] [address] [id number] [address] [place] [address], [place] [address] Sep, [facility] [address] [id number] [address] [place] [address], [place] [address] Aug, [facility] [address] [id number] [address] [place] [address], [place] [address] Aug, [facility] [address] [id number] [address] [place] [address], [place] [address] Jun, [facility] [address] [id number] [address] [place] [address], [place] [address] March, [facility] [address] [id number] [address] [place] [address], [place] [address] March, [facility] [address] [id number] [address] [place] [address], [place] [address] March, [facility] [address] [id number] [address] [place] [address], [place] [address] March, [facility] [address] [id number] [address] [place] [address], [place] [address] March, [facility] [address] [id number] [address] [place] [address], [place] [address] Feb, [facility] [address] [id number] [address] [place] [address], [place] [address] Dec, [facility] [address] [id number] [address] [place] [address], [place] [address] Nov, [facility] [address] [id number] [address] [place] [phone] Aug, [facility] [address] [id number] [address] [place] [phone] Aug, [facility] [address] [id number] [address] [place] [phone] Jun, [facility] [address] [id number] [address] [place] [phone] Jun, [facility] [address] [id number] [address] [place] [phone] Jun, [facility] [address] [id number] [address] [place] [phone] Jun, [facility] [address] [id number] [address] [place] [phone] Apr, [facility] [address] [id number] [address] [place] [phone] Apr, [facility] [address] [id number] [address] [place] [phone] Feb, [facility] [address] [id number] [address] [place] [phone] Feb, IMMUNIZATIONS Vaccine Route Administration Date Status FLU Vaccine (History) Unknown Sep 12, 2014 Administer ed SOCIAL HISTORY Never Assessed REASON FOR VISIT PLAN OF CARE VITAL SIGNS Height 72 in 2014-09-12 Weight 155.9 lbs 2014-09-12 Temperature 97.3 degrees Fahrenheit 2014-09-12 Heart Rate 70 bpm 2014-09-12 Respiratory Rate 16 2014-09-12 Blood pressure systolic 138 mmHg 2014-09-12 Blood pressure diastolic 74 mmHg 2014-09-12 MEDICATIONS No Known Medications RESULTS No Results PROCEDURES Procedure Date Ordered Result Body Site EXC TR-EXT B9 RODRIGO 2.1-3 CM Sep 12, 2014 BIOPSY OF SKIN LESION Sep 12, 2014 INSTRUCTIONS MEDICATIONS ADMINISTERED No Known Medications MEDICAL [...]
--- OUTSIDE RECORDS SUMMARY | 2020-05-08 08:02 | XMS REPORT ---
Author Author Karrie ROGERS Organization [facility] Address [address] [place] [address] Care Team Providers Care Concrete Float Maker Name Role Phone PHOEBE ROGERS Unavailable PROBLEMS Type Condition ICD9-CM Code [id number] Code Onset Dates Condition S tatus SNOMED Code Problem Health examination of defined subpopulation V70.5 Active 466704148 Problem Umbilical hernia without mention of obstruction or gangren e 553.1 Active 287519839 Problem Psychosexual dysfunction with inhibited sexual excitement 302.72 Active 889082033916807 Problem Encounter for removal of sutures V58.32 Active 87955883 Problem Basal cell carcinoma of skin of trunk, except scrotum 173.51 Active 749574034 Problem Vasculogenic erectile dysfun ction, 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 Active 811014370 Problem 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 Unknown Non Drug Allergy Oct, Unknown SOCIAL HISTORY No smoking Hx information available PLAN OF CARE VITAL SIGNS Height 72 in 2016-11-13 Weight 165 lbs 2016-11-13 Temperature 98.3 degrees Fahrenheit 2016-11-13 Heart Rate 56 bpm 2016-11-13 Respiratory Rate 16 2016-11-13 BMI 22.38 kg/m2 2016-11-13 Blood pressure systolic 140 mmHg 2016-11-13 Blood pressure diastolic 90 mmHg 2016-11-13 MEDICATIONS Medication Instructions Dosage Frequency Start Date End Date Duration S tatus Eliquis 5 mg Orally 2 times a day 12h Active Amlodipine Besylate 5 MG Orally Once a day 1 tablet 24h Active Cialis 5 MG TAKE ONE TABLET BY MOUTH EVERY 24 HOURS 06 J , 2015 30 Active RESULTS No Results PROCEDURES Procedure Date Ordered Related Diagnosis Body Site Office Visit, Est Pt., Level 3 Nov 13, 2016 IMMUNIZATIONS No Known Immunizations
--- OUTSIDE RECORDS SUMMARY | 2020-05-08 08:02 | XMS REPORT ---
Author Author Karrie JAVIER Organization [facility] Address [address], [place] [address] Care Team Providers Care Radioisotope Technician Name Role Phone MARIKA JAVIER Unavailable PROBLEMS Type Condition ICD9-CM Code NDF10-EP Code Onset Dates Condition S tatus SNOMED Code Problem Health examination of defined subpopulation V70.5 Active 191248060 Problem Umbilical hernia without mention of obstruction or gangren e 553.1 Active 131312048 Problem Psychosexual dysfunction with inhibited sexual excitement 302.72 Active 768789302151078 Problem Encounter for removal of sutures V58.32 Active 70525503 Problem Basal cell carcinoma of skin of trunk, except scrotum 173.51 Active 506219066 Problem Vasculogenic erectile dysfun ction, 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 Active 790206167 Problem 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 Active 832416346 Problem Hernia of unspecified site o f abdominal cavity without mention of obstruction or gangrene 553.9 Active 5251 5009 Problem Inguinal hernia without ment ion of obstruction or gangrene, bilateral, (not specified as recurrent) 550.92 Active 56127260 Problem Atrial fibrillation, chronic I48.2 A ctive 248642741 Problem Essential (primary) hypertension I10 Active 91823519 ALLERGIES No Known Allergies SOCIAL HISTORY No smoking Hx information available PLAN OF CARE VITAL SIGNS MEDICATIONS No Known Medications RESULTS Name Result Date Reference Range CMP 2016-11-06 Glucose, Serum 74 65-99 BUN 16 6-24 Creatinine, Serum 1.00 0.76-1.27 eGFR If NonAfricn Am 83 >59 eGFR If Africn Am 95 >59 BUN/Creatinine Ratio 16 9-20 Sodium, Serum 143 134-144 Potassium, Serum 4.3 3.5-5.2 Chloride, Serum 102 96-106 Carbon Dioxide, Total 23 18-29 Calcium, Serum 8.9 8.7-10.2 Protein, Total, Serum 6.4 6.0-8.5 Albumin, Serum 4.1 3.5-5.5 Globulin, Total 2.3 1.5-4.5 A/G Ratio 1.8 1.1-2.5 Bilirubin, Total 0.9 0.0-1.2 Alkaline Phosphatase, S 43 39-117 AST (SGOT) 32 0-40 ALT (SGPT) 20 0-44 LIPID PANEL 2016-11-06 Cholesterol, Total 224 100-199 Triglycerides 44 0-149 HDL Cholesterol 55 >39 VLDL Cholesterol Refugio 9 5-40 LDL Cholesterol Calc 160 0-99 Comment: PROCEDURES Procedure Date Ordered Related Diagnosis Body Site VENIPUNCT, ROUTINE* Nov 06, 2016 COMPREHEN METABOLIC PANEL Nov 06, 2016 LIPID PANEL Nov 06, 2016 IMMUNIZATIONS No Known Immunizations
--- OUTSIDE RECORDS SUMMARY | 2020-05-08 08:02 | XMS REPORT ---
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 Active 291646112 Problem Vasculogenic erectile dysfun ction, 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 Active 863455166 Problem Other cardiac arrhythmia I49.8 Activ e 93123588 ALLERGIES No Information ENCOUNTERS Encounter Location Date Diagnosis [place] [id number] [address] Apr, Vasculogenic erectile dysfun ction, 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 [facility] [address] [place] [id number] [address] [place] [address] Oct, Atrial fibrillation, chronic I48.2 and Erectile dysfunction, unspecified erectile dysfunction type N52.9 [facility] [address] [facility] [id number] [address] [place] [address] Aug, [facility] [address] [place] [id number] [address] [place] [address] March, Hypertension, benign I10 [facility] [address] [place] [id number] [address] [place] [address] March, Hypertension, benign I10 [facility] [address] [place] [id number] [address] [place] [address] Dec, [place] [address] [facility] [id number] [address] [place] [address] Nov, Other cardiac arrhythmia I49 .[address] [place] [address] 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 [place] [address] [place] [id number] [place] [address] 15 Oct, 2016 Atrial fibrillation, chronic I48.2 and Essential (primary) hypertension I10 [place] [address] [address] Sep, Encounter for immunization Z 23 [place] [address] [place] [id number] [place] [address] 08 Jul, 2016 Essential hypertension I10 a nd Chronic atrial fibrillation I48.2 [place] [address] [place] [id number] [place] [address] Jun, [place] [address] [place] [id number] [place] [address] May, Basal cell carcinoma of skin of trunk, except scrotum 173.51 ; Family history of colon cancer V16.0 and ED (erectile dysfunction) 607.84 [place] [address] [place] [id number] [address] [place] [address] May, Family history of colon canc er V16.0 [place] [address] [place] [id number] [address] [place] [address] May, Family history of colon canc er V16.0 and Erectile dysfunction 607.84 [facility] [address] [id number] [address] [place] [address] Apr, [facility] [address] [id number] [address] [place] [address] Feb, [facility] [address] [id number] [address] [place] [address] Dec, [facility] [address] [id number] [address] [place] [address] Dec, [facility] [address] [id number] [address] [place] [address] Sep, [facility] [address] [id number] [address] [place] [address] Sep, [facility] [address] [id number] [address] [place] [address] Aug, [facility] [address] [id number] [address] [place] [address] Aug, [facility] [address] [id number] [address] [place] [address] Aug, [facility] [address] [id number] [address] [place] [address] Aug, [facility] [address] [id number] [address] [place] [address] Aug, [facility] [address] [id number] [address] [place] [address] Aug, [facility] [address] [id number] [address] [place] [address] Feb, [facility] [address] [id number] [address] [place] [address] Feb, [facility] [address] [id number] [address] [place] [address] Dec, [facility] [address] [id number] [address] [place] [address], [place] [address] Dec, [facility] [address] [id number] [address] [place] [address], [place] [address] Oct, [facility] [address] [id number] [address] [place] [address], [place] [address] Oct, [facility] [address] [id number] [address] [place] [address], [place] [address] Sep, [facility] [address] [id number] [address] [place] [address], [place] [address] Sep, [facility] [address] [id number] [address] [place] [address], [place] [address] Aug, [facility] [address] [id number] [address] [place] [address], [place] [address] Aug, [facility] [address] [id number] [address] [place] [address], [place] [address] Jun, [facility] [address] [id number] [address] [place] [address], [place] [address] March, [facility] [address] [id number] [address] [place] [address], [place] [address] March, [facility] [address] [id number] [address] [place] [address], [place] [address] March, [facility] [address] [id number] [address] [place] [address], [place] [address] March, [facility] [address] [id number] [address] [place] [address], [place] [address] March, [facility] [address] [id number] [address] [place] [address], [place] [address] Feb, [facility] [address] [id number] [address] [place] [address], [place] [address] Dec, [facility] [address] [id number] [address] [place] [address], [place] [address] Nov, [facility] [address] [id number] [address] [place] [address] Aug, [facility] [address] [id number] [address] [place] [address] Aug, [facility] [address] [id number] [address] [place] [address] Jun, [facility] [address] [id number] [address] [place] [address] Jun, [facility] [address] [id number] [address] [place] [address] Jun, [facility] [address] [id number] [address] [place] [address] Jun, [facility] [address] [id number] [address] [place] [address] Apr, [facility] [address] [id number] [address] [place] [address] Apr, [facility] [address] [id number] [address] [place] [address] Feb, [facility] [address] [id number] [address] [place] [address] Feb, IMMUNIZATIONS No Known Immunizations SOCIAL HISTORY [...]
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
--- OUTSIDE RECORDS SUMMARY | 2020-05-08 08:02 | XMS REPORT ---
Author Author Karrie ROEGRS Organization [facility] Address [address] [place] [address] Care Team Providers Care Black Leather Buffer Name Role Phone PHOEBE ROGERS Unavailable PROBLEMS Type Condition ICD9-CM Code [id number] Code Onset Dates Condition S tatus SNOMED Code Problem Umbilical hernia without mention of obstruction or gangren e 553.1 Active 288854584 Problem Psychosexual dysfunction with inhibited sexual excitement 302.72 Active [id number] Problem Inguinal hernia without ment ion of obstruction or gangrene, bilateral, (not specified as recurrent) 550.92 Active 41111478 Problem Basal cell carcinoma of skin of trunk, except scrotum 173.51 Active 325328946 Problem Encounter for removal of sutures V58.32 Active 98314809 Problem Health examination of defined subpopulation V70.5 Active 264289495 Problem Hernia of unspecified site o f abdominal cavity without mention of obstruction or gangrene 553.9 Active 5251 5009 Problem Hypertension, benign I10 Active 70501533 Problem Other cardiac arrhythmia I49.8 Activ e 00755740 Problem Essential (primary) hypertension I10 Active 43370845 Problem Atrial fibrillation, chronic I48.2 A ctive 610179099 Problem Vasculogenic erectile dysfun ction, 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 Active 958570861 Problem 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 Active 146184839 ALLERGIES No Known Allergies ENCOUNTERS Encounter Location Date Diagnosis [facility] [address] [facility] [id number] [address] [place] [address] March, Hypertension, benign I10 [facility] [address] [facility] [id number] [address] [place] [address] March, Hypertension, benign I10 [facility] [address] [facility] [id number] [address] [place] [address] Dec, [place] [address] [place] [id number] [address] [place] [address] Nov, Other cardiac arrhythmia I49 .8 [place] [address] [place] [id number] [address] [place] [address] Apr, Vasculogenic erectile dysfun ction, 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 [place] [address] [place] [id number] [place] [address] Feb, [place] [address] [place] [id number] [place] [address] Oct, 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 [place] [address] [place] [id number] [place] [address] 15 Oct, 2016 Atrial fibrillation, chronic I48.2 and Essential (primary) hypertension I10 [place] [address] [address] Sep, Encounter for immunization Z 23 [place] [address] [address] 08 Jul, 2016 Essential hypertension I10 a nd Chronic atrial fibrillation I48.2 [place] [address] [place] [id number] [place] [address] Jun, [place] [address] [place] [id number] [place] [address] May, Basal cell carcinoma of skin of trunk, except scrotum 173.51 ; Family history of colon cancer V16.0 and ED (erectile dysfunction) 607.84 [place] [address] [place] [id number] [address] [place] [address] May, Family history of colon canc er V16.0 [place] [address] [place] [id number] [address] [place] [address] May, Family history of colon canc er V16.0 and Erectile dysfunction 607.84 [facility] [address] [id number] [address] [place] [address], [place] [address] Apr, [facility] [address] [id number] [address] [place] [address], [place] [address] Feb, [facility] [address] [id number] [address] [place] [address], [place] [address] Dec, [facility] [address] [id number] [address] [place] [address], [place] [address] Dec, [facility] [address] [id number] [address] [place] [address], [place] [address] Sep, [facility] [address] [id number] [address] [place] [address], [place] [address] Sep, [facility] [address] [id number] [address] [place] [address], [place] [address] Aug, [facility] [address] [id number] [address] [place] [address] Aug, [facility] [address] [id number] [address] [place] [address], [place] [address] Aug, [facility] [address] [id number] [address] [place] [address] Aug, [facility] [address] [id number] [address] [place] [address], [place] [address] Aug, [facility] [address] [id number] [address] [place] [address] Aug, [facility] [address] [id number] [address] [place] [address], [place] [address] Feb, [facility] [address] [id number] [address] [place] [address] Feb, [facility] [address] [id number] [address] [place] [address], [place] [address] Dec, [facility] [address] [id number] [address] [place] [address], [place] [address] Dec, [facility] [address] [id number] [address] [place] [address], [place] [address] Oct, [facility] [address] [id number] [address] [place] [address], [place] [address] Oct, [facility] [address] [id number] [address] [place] [address], [place] [address] Sep, [facility] [address] [id number] [address] [place] [address], [place] [address] Sep, [facility] [address] [id number] [address] [place] [address], [place] [address] Aug, [facility] [address] [id number] [address] [place] [address], [place] [address] Aug, [facility] [address] [id number] [address] [place] [address], [place] [address] Jun, [facility] [address] [id number] [address] [place] [address], [place] [address] March, [facility] [address] [id number] [address] [place] [address], [place] [address] March, [facility] [address] [id number] [address] [place] [address], [place] [address] March, [facility] [address] [id number] [address] [place] [address], [place] [address] March, [facility] [address] [id number] [address] [place] [address], [place] [address] March, [facility] [address] [id number] [address] [place] [address], [place] [address] Feb, [facility] [address] [id number] [address] [place] [address], [place] [address] Dec, [facility] [address] [id number] [address] [place] [address], [place] [address] Nov, [facility] [address] [id number] [address] [place] [address] Aug, [facility] [address] [id number] [address] [place] [address] Aug, [facility] [address] [id number] [address] [place] [address] Jun, [facility] [address] [id number] [address] [place] [address] Jun, [facility] [address] [id number] [address] [place] [address] Jun, [facility] [address] [id number] [address] [place] [address] Jun, [facility] [address] [id number] [address] [place] [address] Apr, [facility] [address] [id number] [address] [place] [address] Apr, [facility] [address] [id number] [address] [place] [address] Feb, [facility] [address] [id number] [address] [place] [address] Feb, IMMUNIZATIONS No Known Immunizations SOCIAL HISTORY Never Assessed REASON FOR VISIT HTN, PT is here to review medications-Michelle RODGERS PLAN OF CARE VITAL SIGNS Height 72 in 2018-03-24 Weight 156.8 lbs 2018-03-24 Temperature 97.5 degrees Fahrenheit 2018-03-24 Heart Rate 62 bpm 2018-03-24 Respiratory Rate 18 2018-03-24 BMI 21.26 kg/m2 2018-03-24 Blood pressure systolic 104 mmHg 2018-03-24 Blood pressure diastolic 70 mmHg 2018-03-24 MEDICATIONS Medication Instructions Dosage Frequency Start Date End Date Duration S bony Amlodipine Besylate 5 mg Orally Once a day 1 tablet 24h 30 days Active Eliquis 5 mg Orally 2 times a day 12h Active Cialis 5MG Oral Once a day 1 tablet 24h Acti ve RESULTS No Results PROCEDURES No Known procedures [...]
--- OUTSIDE RECORDS SUMMARY | 2020-05-08 08:02 | XMS REPORT ---
Author Author Karrie Naranjo Doctor Organization [facility] Address Unknown Phone Unavailable Care Team Providers Care Hotel Controller Name Role Phone Migration, Doctor Unavailable Unavailable PROBLEMS Type Condition ICD9-CM Code [id number] Code Onset Dates Condition S tatus SNOMED Code Problem Atrial fibrillation, chronic I48.2 A ctive 230140736 Problem Hypertension, benign I10 Active 72315107 Problem Erectile dysfunction, unspecified erectile dysfunction typ e N52.9 Active 840420837 Problem Essential (primary) hypertension I10 Active 75102924 Problem 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 Active 859541097 Problem Vasculogenic erectile dysfun ction, 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 Active 457690399 Problem Other cardiac arrhythmia I49.8 Activ e 54230251 ALLERGIES No Information ENCOUNTERS Encounter Location Date Diagnosis [facility] [address] [place] [id number] [address] [place] [address] Oct, Atrial fibrillation, chronic I48.2 and Erectile dysfunction, unspecified erectile dysfunction type N52.9 [facility] [address] [place] [id number] [address] [place] [address] Aug, [facility] [address] [place] [id number] [address] [place] [address] March, Hypertension, benign I10 [facility] [address] [place] [id number] [address] [place] [address] March, Hypertension, benign I10 [facility] [address] [place] [id number] [address] [place] [address] Dec, [facility] [address] [place] [id number] [address] [place] [address] Nov, Other cardiac arrhythmia I49 .8 [facility] [address] [address] Apr, Vasculogenic erectile dysfun ction, 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 [id number] [address] [place] [address] 15 Oct, 2016 Atrial fibrillation, chronic I48.2 and Essential (primary) hypertension I10 [place] [address] [place] [id number] [address] [place] [address] Sep, Encounter for immunization Z 23 [place] [address] [place] [id number] [address] [place] [address] Jul, Essential hypertension I10 a nd Chronic atrial fibrillation I48.2 [place] [address] [facility] [id number] [address] [place] [address] Jun, [place] [address] [place] [id number] [place] [address] May, Basal cell carcinoma of skin of trunk, except scrotum 173.51 ; Family history of colon cancer V16.0 and ED (erectile dysfunction) 607.84 [place] [address] [place] [id number] [address] [place] [address] May, Family history of colon canc er V16.0 [place] [address] [facility] [id number] [address] [place] [address] May, Family history of colon canc er V16.0 and Erectile dysfunction 607.84 [place] [address] [facility] [id number] [address] [place] [address] Apr, [place] [address] [place] [id number] [address] [place] [address] Feb, [facility] [address] [id number] [address] [place] [address], [place] [address] Dec, [facility] [address] [id number] [address] [place] [address], [place] [address] Dec, [facility] [address] [id number] [address] [place] [address], [place] [address] Sep, [facility] [address] [id number] [address] [place] [address], [place] [address] Sep, [facility] [address] [id number] [address] [place] [address], [place] [address] Aug, [facility] [address] [id number] [address] [place] [address], [place] [address] Aug, [facility] [address] [id number] [address] [place] [address], [place] [address] Aug, [facility] [address] [id number] [address] [place] [address], [place] [address] Aug, [facility] [address] [id number] [address] [place] [address], [place] [address] Aug, [facility] [address] [id number] [address] [place] [address] Aug, [facility] [address] [id number] [address] [place] [address], [place] [address] Feb, [facility] [address] [id number] [address] [place] [address] Feb, [facility] [address] [id number] [address] [place] [address], [place] [address] Dec, [facility] [address] [id number] [address] [place] [address], [place] [address] Dec, [facility] [address] [id number] [address] [place] [address], [place] [address] Oct, [facility] [address] [id number] [address] [place] [address], [place] [address] Oct, [facility] [address] [id number] [address] [place] [address], [place] [address] Sep, [facility] [address] [id number] [address] [place] [address], [place] [address] Sep, [facility] [address] [id number] [address] [place] [address], [place] [address] Aug, [facility] [address] [id number] [address] [place] [address], [place] [address] Aug, [facility] [address] [id number] [address] [place] [address], [place] [address] Jun, [facility] [address] [id number] [address] [place] [address], [place] [address] March, [facility] [address] [id number] [address] [place] [address], [place] [address] March, [facility] [address] [id number] [address] [place] [address], [place] [address] March, [facility] [address] [id number] [address] [place] [address], [place] [address] March, [facility] [address] [id number] [address] [place] [address], [place] [address] March, [facility] [address] [id number] [address] [place] [address], [place] [address] Feb, [facility] [address] [id number] [address] [place] [address], [place] [address] Dec, [facility] [address] [id number] [address] [place] [address], [place] [address] Nov, [facility] [address] [id number] [address] [place] [address], [place] [address] Aug, [facility] [address] [id number] [address] [place] [address], [place] [address] Aug, [facility] [address] [id number] [address] [place] [address] Jun, [facility] [address] [id number] [address] [place] [address] Jun, [facility] [address] [id number] [address] [place] [address] Jun, [facility] [address] [id number] [address] [place] [address] Jun, [facility] [address] [id number] [address] [place] [address] Apr, [facility] [address] [id number] [address] [place] [address] Apr, [facility] [address] [id number] [address] [place] [address] Feb, [facility] [address] [id number] [address] [place] [address] Feb, IMMUNIZATIONS No Known Immunizations SOCIAL HISTORY Never Assessed REASON FOR VISIT EMR[place] [place] VITAL SIGNS MEDICATIONS No [...]
--- OUTSIDE RECORDS SUMMARY | 2020-05-08 08:02 | XMS REPORT ---
Author Author Karrie ROGERS Organization [facility] Address [address] [place] [address] Care Team Providers Care Lunchroom Aide Name Role Phone SUEPHOEBE Unavailable PROBLEMS Type Condition ICD9-CM Code [id number] Code Onset Dates Condition S tatus SNOMED Code Problem Umbilical hernia without mention of obstruction or gangren e 553.1 Active 834710067 Problem Psychosexual dysfunction with inhibited sexual excitement 302.72 Active [id number] Problem Inguinal hernia without ment ion of obstruction or gangrene, bilateral, (not specified as recurrent) 550.92 Active 60927373 Problem Basal cell carcinoma of skin of trunk, except scrotum 173.51 Active 740960849 Problem Encounter for removal of sutures V58.32 Active 92635558 Problem Health examination of defined subpopulation V70.5 Active 132157945 Problem Hernia of unspecified site o f abdominal cavity without mention of obstruction or gangrene 553.9 Active 5251 5009 Problem Hypertension, benign I10 Active 00574807 Problem Other cardiac arrhythmia I49.8 Activ e 87812936 Problem Essential (primary) hypertension I10 Active 06096400 Problem Atrial fibrillation, chronic I48.2 A ctive 029462736 Problem Vasculogenic erectile dysfun ction, 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 Active 775013150 Problem 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 Active 834652689 ALLERGIES No Information ENCOUNTERS Encounter Location Date Diagnosis [facility] [address] [facility] [id number] [address] [place] [phone] Sep, [facility] [address] [facility] [id number] [address] [place] [address] Aug, [facility] [address] [facility] [id number] [address] [place] [address] March, Hypertension, benign I10 [place] [address] [facility] [id number] [address] [place] [address] March, Hypertension, benign I10 [place] [address] [facility] [id number] [address] [place] [address] Dec, [place] [address] [place] [id number] [address] [place] [address] Nov, Other cardiac arrhythmia I49 .8 [place] [address] [place] [id number] [place] [address] Apr, Vasculogenic erectile dysfun ction, 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 [place] [address] [place] [id number] [place] [address] Feb, [place] [address] [place] [id number] [place] [address] Oct, 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 [place] [address] [place] [id number] [address] [place] [address] Oct, Atrial fibrillation, chronic I48.2 and Essential (primary) hypertension I10 [place] [address] [place] [id number] [place] [address] Sep, Encounter for immunization Z 23 [place] [address] [place] [id number] [place] [address] Jul, Essential hypertension I10 a nd Chronic atrial fibrillation I48.2 [place] [address] [facility] [id number] [address] [place] [address] Jun, [place] [address] [place] [id number] [place] [address] May, Basal cell carcinoma of skin of trunk, except scrotum 173.51 ; Family history of colon cancer V16.0 and ED (erectile dysfunction) 607.84 [place] [address] [place] [id number] [address] [place] [address] May, Family history of colon canc er V16.0 [facility] [address] [id number] [address] [place] [address] May, Family history of colon canc er V16.0 and Erectile dysfunction 607.84 [facility] [address] [id number] [address] [place] [address] Apr, [facility] [address] [id number] [address] [place] [address] Feb, [facility] [address] [id number] [address] [place] [address] Dec, [facility] [address] [id number] [address] [place] [address] Dec, [facility] [address] [id number] [address] [place] [address] Sep, [facility] [address] [id number] [address] [place] [address] Sep, [facility] [address] [id number] [address] [place] [phone] Aug, [facility] [address] [id number] [address] [place] [address] Aug, [facility] [address] [id number] [address] [place] [address] Aug, [facility] [address] [id number] [address] [place] [address] Aug, [facility] [address] [id number] [address] [place] [address] Aug, [facility] [address] [id number] [address] [place] [address] Aug, [facility] [address] [id number] [address] [place] [address] Feb, [facility] [address] [id number] [address] [place] [phone] Feb, [facility] [address] [id number] [address] [place] [address], [place] [address] Dec, [facility] [address] [id number] [address] [place] [address], [place] [address] Dec, [facility] [address] [id number] [address] [place] [address], [place] [address] Oct, [facility] [address] [id number] [address] [place] [address], [place] [address] Oct, [facility] [address] [id number] [address] [place] [address], [place] [address] Sep, [facility] [address] [id number] [address] [place] [address], [place] [address] Sep, [facility] [address] [id number] [address] [place] [address], [place] [address] Aug, [facility] [address] [id number] [address] [place] [address], [place] [address] Aug, [facility] [address] [id number] [address] [place] [address], [place] [address] Jun, [facility] [address] [id number] [address] [place] [address], [place] [address] March, [facility] [address] [id number] [address] [place] [address], [place] [address] March, [facility] [address] [id number] [address] [place] [address], [place] [address] March, [facility] [address] [id number] [address] [place] [address], [place] [address] March, [facility] [address] [id number] [address] [place] [address], [place] [address] March, [facility] [address] [id number] [address] [place] [address], [place] [address] Feb, [facility] [address] [id number] [address] [place] [address] Dec, [facility] [address] [id number] [address] [place] [address] Nov, [facility] [address] [id number] [address] [place] [address] Aug, [facility] [address] [id number] [address] [place] [address] Aug, [facility] [address] [id number] [address] [place] [address] Jun, [facility] [address] [id number] [address] [place] [address] Jun, [facility] [address] [id number] [address] [place] [address] Jun, [facility] [address] [id number] [address] [place] [address] Jun, [facility] [address] [id number] [address] [place] [address] Apr, [facility] [address] [id number] [address] [place] [address] Apr, [facility] [address] [id number] [address] [place] [address] Feb, [facility] [address] [id number] [address] [place] [address] Feb, IMMUNIZATIONS No Known Immunizations SOCIAL HISTORY Never Assessed REASON FOR VISIT med refill PLAN OF CARE VITAL SIGNS MEDICATIONS Medication Instructions Dosage Frequency Start Date [...]
--- OUTSIDE RECORDS SUMMARY | 2020-05-08 08:02 | XMS REPORT ---
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 635868102 Problem Vasculogenic erectile dysfun ction, 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 Active 783822181 Problem Other cardiac arrhythmia I49.8 Activ e [id number] ALLERGIES No Information ENCOUNTERS Encounter Location Date Diagnosis [place] [address] [place] [id number] [address] [place] [address] Apr, Vasculogenic erectile dysfun ction, 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 [facility] [address] [place] [id number] [address] [place] [address] Oct, Atrial fibrillation, chronic I48.2 and Erectile dysfunction, unspecified erectile dysfunction type N52.9 [facility] [address] [facility] [id number] [address] [place] [address] Aug, [facility] [address] [place] [id number] [address] [place] [address] March, Hypertension, benign I10 [facility] [address] [place] [id number] [address] [place] [address] March, Hypertension, benign I10 [facility] [address] [place] [id number] [address] [place] [address] Dec, [place] [address] [facility] [id number] [address] [place] [address] Nov, Other cardiac arrhythmia I49 .8 [place] [address] [facility] [id number] [address] [place] [address] Apr, Vasculogenic erectile dysfun ction, 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 [place] [address] [place] [id number] [place] [address] Feb, [place] [address] [place] [id number] [place] [address] Oct, 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 [place] [address] [place] [id number] [place] [phone] 15 Oct, 2016 Atrial fibrillation, chronic I48.2 and Essential (primary) hypertension I10 [place] [address] [address] Sep, Encounter for immunization Z 23 [place] [address] [place] [id number] [place] [phone] 08 Jul, 2016 Essential hypertension I10 a nd Chronic atrial fibrillation I48.2 [place] [address] [place] [id number] [place] [address] Jun, [place] [address] [place] [id number] [place] [address] May, Basal cell carcinoma of skin of trunk, except scrotum 173.51 ; Family history of colon cancer V16.0 and ED (erectile dysfunction) 607.84 [place] [address] [place] [id number] [address] [place] [address] May, Family history of colon canc er V16.0 [place] [address] [place] [id number] [address] [place] [address] May, Family history of colon canc er V16.0 and Erectile dysfunction 607.84 [facility] [address] [id number] [address] [place] [address] Apr, [facility] [address] [id number] [address] [place] [address] Feb, [facility] [address] [id number] [address] [place] [address] Dec, [facility] [address] [id number] [address] [place] [address] Dec, [facility] [address] [id number] [address] [place] [address] Sep, [facility] [address] [id number] [address] [place] [address] Sep, [facility] [address] [id number] [address] [place] [address] Aug, [facility] [address] [id number] [address] [place] [address] Aug, [facility] [address] [id number] [address] [place] [address] Aug, [facility] [address] [id number] [address] [place] [address] Aug, [facility] [address] [id number] [address] [place] [address] Aug, [facility] [address] [id number] [address] [place] [address] Aug, [facility] [address] [id number] [address] [place] [address] Feb, [facility] [address] [id number] [address] [place] [address] Feb, [facility] [address] [id number] [address] [place] [address] Dec, [facility] [address] [id number] [address] [place] [address], [place] [address] Dec, [facility] [address] [id number] [address] [place] [address], [place] [address] Oct, [facility] [address] [id number] [address] [place] [address], [place] [address] Oct, [facility] [address] [id number] [address] [place] [address], [place] [address] Sep, [facility] [address] [id number] [address] [place] [address], [place] [address] Sep, [facility] [address] [id number] [address] [place] [address], [place] [address] Aug, [facility] [address] [id number] [address] [place] [address], [place] [address] Aug, [facility] [address] [id number] [address] [place] [address], [place] [address] Jun, [facility] [address] [id number] [address] [place] [address], [place] [address] March, [facility] [address] [id number] [address] [place] [address], [place] [address] March, [facility] [address] [id number] [address] [place] [address], [place] [address] March, [facility] [address] [id number] [address] [place] [address], [place] [address] March, [facility] [address] [id number] [address] [place] [address], [place] [address] March, [facility] [address] [id number] [address] [place] [address], [place] [address] Feb, [facility] [address] [id number] [address] [place] [address], [place] [address] Dec, [facility] [address] [id number] [address] [place] [address], [place] [address] Nov, [facility] [address] [id number] [address] [place] [address] Aug, [facility] [address] [id number] [address] [place] [address] Aug, [facility] [address] [id number] [address] [place] [address] Jun, [facility] [address] [id number] [address] [place] [address] Jun, [facility] [address] [id number] [address] [place] [address] Jun, [facility] [address] [id number] [address] [place] [address] Jun, [facility] [address] [id number] [address] [place] [address] Apr, [facility] [address] [id number] [address] [place] [address] Apr, [facility] [address] [id number] [address] [place] [address] Feb, [facility] [address] [id number] [address] [place] [address] Feb, IMMUNIZATIONS No Known Immunizations SOCIAL HISTORY [...]
--- OUTSIDE RECORDS SUMMARY | 2020-05-08 08:03 | XMS REPORT | Continuity of Care Document ---
Demographics Preferred Language Unknown Marital Status Unknown Gnosticism Affiliation Unknown Race Unknown Ethnic Group Unknown Author Organization Unknown Address Unknown Phone Unavailable Allergies Active Description Code Type Severity Reaction Onset Reported/Identified Relationship to Patient Clinical Status Yes NO KNOWN DRUG ALLERGIES UNKNOWN NO KNOWN DRUG ALLERG Yes No Known Drug Allergies [id number] Drug Allergy Unknown N/A 05/04/2020 Medications There is no data. Problems Date Dx Coded Attending Type Code Diagnosis Diagnosed By 10/22/1542 SARINA HOBBS DO Ot Z01.818 ENCOUNTER FOR OTHER PREPROCEDURAL EXAMIN 10/22/1542 SARINA HOBBS DO Ot Z11. 59 ENCOUNTER FOR SCREENING FOR OTHER VIRAL 03/01/2012 PHOEBE ROGERS APRN 55 3.9 HERNIA UNSPECIFIED SITE 03/01/2012 553.9 ISABELLE IA UNSPECIFIED SITE 03/01/2012 PHOEBE ROGERS APRN 3.9 HERNIA UNSPECIFIED SITE 03/01/2012 PHOEBE ROGERS APRN 3.9 HERNIA UNSPECIFIED SITE 03/01/2012 PHOEBE ROGERS APRN 3.9 HERNIA UNSPECIFIED SITE 03/01/2012 CASSI MENENDEZ DO 553.9 HERNIA UNSPECIFIED SITE 03/01/2012 553.9 ISABELLE IA UNSPECIFIED SITE 05/03/2012 PHOEBE ROGERS APRN 550.92 BILATERAL INGUINAL HERNIA WITHOUT OBSTRUCTION OR GANGR CHI 05/03/2012 PHOEBE ROGERS APRN 55 3.1 UMBILICAL HERNIA WITHOUT OBSTRUCTION OR GANGRENE 05/03/2012 550.92 CLAUDINE ATERAL INGUINAL HERNIA WITHOUT OBSTRUCTION OR GANGRENE 05/03/2012 553.1 UMBI LICAL HERNIA WITHOUT OBSTRUCTION OR GANGRENE 05/03/2012 PHOEBE ROGERS APRN 550.92 BILATERAL INGUINAL HERNIA WITHOUT OBSTRUCTION OR GANGR CHI 05/03/2012 PHOEBE ROGERS APRN 55 3.1 UMBILICAL HERNIA WITHOUT OBSTRUCTION OR GANGRENE 05/03/2012 PHOEBE ROGERS APRN 550.92 BILATERAL INGUINAL HERNIA WITHOUT OBSTRUCTION OR GANGR CHI 05/03/2012 PHOEBE ROGERS APRN 55 3.1 UMBILICAL HERNIA WITHOUT OBSTRUCTION OR GANGRENE 05/03/2012 PHOEBE ROGERS APRN 550.92 BILATERAL INGUINAL HERNIA WITHOUT OBSTRUCTION OR GANGR CHI 05/03/2012 PHOEBE ROGERS APRN 55 3.1 UMBILICAL HERNIA WITHOUT OBSTRUCTION OR GANGRENE 05/03/2012 CASSI MENENDEZ DO 550.92 BILATERAL INGUINAL HERNIA WITHOUT OBSTRUCTION OR GANGRENE 05/03/2012 MENENDEZ MAERyan Mcneill 553.1 UMBILICAL HERNIA WITHOUT OBSTRUCTION OR GANGRENE 05/03/2012 550.92 CLAUDINE ATERAL INGUINAL HERNIA WITHOUT OBSTRUCTION OR GANGRENE 05/03/2012 553.1 UMBI LICAL HERNIA WITHOUT OBSTRUCTION OR GANGRENE 05/21/2012 Ot 550.92 05/21/2012 Ot 553.1 04/06/2013 302.72 ERE CTILE DISORDER 04/06/2013 PHOEBE ROGERS APRN 302.72 ERECTILE DISORDER 04/06/2013 PHOEBE ROGERS APRN 302.72 ERECTILE DISORDER 04/06/2013 PHOEBE ROGERS APRN 302.72 ERECTILE DISORDER 04/06/2013 CASSI MENENDEZ DO 302.72 ERECTILE DISORDER 11/08/2013 PHOEBE ROGERS APRN V7 0.5 PREEMPLOYMENT/PRESCHOOL EXAM 11/08/2013 PHOEBE ROGERS APRN V7 0.5 PREEMPLOYMENT/PRESCHOOL EXAM 11/08/2013 CASSI MENENDEZ DO V70.5 PREEMPLOYMENT/PRESCHOOL EXAM 09/12/2014 PHOEBE ROGERS APRN 173.51 BASAL CELL CARCINOMA OF SKIN OF TRUNK EXCEPT SCROTUM 09/12/2014 PHOEBE ROGERS APRN V04.81 FLU SHOT 09/12/2014 CASSI MENENDEZ DO 173.51 BASAL CELL CARCINOMA OF SKIN OF TRUNK EXCEPT SCROTUM 09/12/2014 CASSI MENENDEZ DO V04.81 FLU SHOT 09/22/2014 CASSI MENENDEZ DO V58.32 SUTURE REMOVAL 09/28/2015 Ot 550.90 09/28/2015 Ot 553.1 09/28/2015 Ot V72.63 09/28/2015 Ot V74.8 10/12/2015 Ot 550.90 10/12/2015 Ot 553.1 10/12/2015 Ot V72.63 10/12/2015 Ot V74.8 10/31/2015 YAYA HOOKS FACKatheryn, MARIKA FACP CCDS Ot I10 10/31/2015 YAYA HOOKS FACC, ALI FACP CCDS Ot I48.2 10/31/2015 [facility], ALI FACP CCDS Ot I73.00 10/31/2015 [facility], ALI FACP CCDS Ot R94.31 11/08/2015 [facility], ALI FACP CCDS Ot I10 11/08/2015 [facility], ALI FACP CCDS Ot I48.2 11/08/2015 [facility], ALI FACP CCDS Ot I73.00 11/08/2015 [facility], ALI FACP CCDS Ot R94.31 03/23/2020 [facility], ALI FACP CCDS Ot I10 ESSENTIAL (PRIMARY) HYPERTENSION 03/23/2020 [facility], ALI FACP CCDS Ot I48.2 CHRONIC ATRIAL FIBRILLATION 03/23/2020 [facility], ALI FACP CCDS Ot 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 03/23/2020 [facility], ALI FACP CCDS Ot R94.31 ABNORMAL ELECTROCARDIOGRAM [ECG] [EKG] 03/23/2020 [facility], ALI FACP CCDS Ot I10 ESSENTIAL (PRIMARY) HYPERTENSION 03/23/2020 [facility], ALI FACP CCDS Ot I48.2 CHRONIC ATRIAL FIBRILLATION 03/23/2020 [facility], ALI FACP CCDS Ot 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 03/23/2020 [facility], ALI FACP CCDS Ot R94.31 ABNORMAL ELECTROCARDIOGRAM [ECG] [EKG] 03/28/2020 [facility], ALI FACP CCDS Ot I10 ESSENTIAL (PRIMARY) HYPERTENSION 03/28/2020 [facility], ALI FACP CCDS Ot I48.2 CHRONIC ATRIAL FIBRILLATION 03/28/2020 [facility], ALI FACP CCDS Ot 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 03/28/2020 [facility], ALI FACP CCDS Ot R94.31 ABNORMAL ELECTROCARDIOGRAM [ECG] [EKG] 03/28/2020 [facility], ALI FACP CCDS Ot I10 ESSENTIAL (PRIMARY) HYPERTENSION 03/28/2020 [facility], ALI FACP CCDS Ot I48.2 CHRONIC ATRIAL FIBRILLATION 03/28/2020 [facility], ALI FACP CCDS Ot 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 03/28/2020 [facility], ALI FACP CCDS Ot R94.31 ABNORMAL ELECTROCARDIOGRAM [ECG] [EKG] 03/28/2020 [facility], ALI FACP CCDS Ot I10 ESSENTIAL (PRIMARY) HYPERTENSION 03/28/2020 [facility], ALI FACP CCDS Ot I48.2 CHRONIC ATRIAL FIBRILLATION 03/28/2020 [facility], ALI FACP CCDS Ot 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 03/28/2020 [facility], ALI FACP CCDS Ot R94.31 ABNORMAL ELECTROCARDIOGRAM [ECG] [EKG] 03/28/2020 [facility], ALI FACP CCDS Ot I10 ESSENTIAL (PRIMARY) HYPERTENSION 03/28/2020 [facility], ALI FACP CCDS Ot I48.2 CHRONIC ATRIAL FIBRILLATION 03/28/2020 [facility], ALI FACP CCDS Ot 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 03/28/2020 [facility], ALI FACP CCDS Ot R94.31 ABNORMAL ELECTROCARDIOGRAM [ECG] [EKG] 03/30/2020 [facility], ALI FACP CCDS Ot I10 ESSENTIAL (PRIMARY) HYPERTENSION 03/30/2020 [facility], ALI FACP CCDS Ot I48.2 CHRONIC ATRIAL FIBRILLATION 03/30/2020 [facility], ALI FACP CCDS Ot 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 03/30/2020 [facility], ALI FACP CCDS Ot R94.31 ABNORMAL ELECTROCARDIOGRAM [ECG] [EKG] 03/30/2020 [facility], ALI FACP CCDS Ot I10 ESSENTIAL (PRIMARY) HYPERTENSION 03/30/2020 [facility], ALI FACP CCDS Ot I48.2 CHRONIC ATRIAL FIBRILLATION 03/30/2020 [facility], ALI FACP CCDS Ot 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 04/02/2020 [facility], ALI FACP CCDS Ot R94.31 ABNORMAL ELECTROCARDIOGRAM [ECG] [EKG] 04/02/2020 YAYA HOOKS [facility], ALI FACP CCDS Ot I10 ESSENTIAL (PRIMARY) HYPERTENSION 04/02/2020 [facility], ALI FACP CCDS Ot I48.2 CHRONIC ATRIAL FIBRILLATION 04/02/2020 YAYA [facility], ALI FACP CCDS Ot 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 04/02/2020 [facility], ALI FACP CCDS Ot R94.31 ABNORMAL ELECTROCARDIOGRAM [ECG] [EKG] 04/03/2020 YAYA HOOKS [facility], ALI FACP CCDS Ot I10 ESSENTIAL (PRIMARY) HYPERTENSION 04/03/2020 [facility], ALI FACP CCDS Ot I48.2 CHRONIC ATRIAL FIBRILLATION 04/03/2020 [facility], ALI FACP CCDS Ot 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 04/03/2020 YAYA [facility], ALI FACP CCDS Ot R94.31 ABNORMAL ELECTROCARDIOGRAM [ECG] [EKG] 04/03/2020 [facility], ALI FACP CCDS Ot I10 ESSENTIAL (PRIMARY) HYPERTENSION 04/03/2020 [facility], ALI FACP CCDS Ot I48.2 CHRONIC ATRIAL FIBRILLATION 04/03/2020 [facility], ALI FACP CCDS Ot 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 7 LEFT BUNDLE-BRANCH BLOCK, UNSPECIFIED 04/03/2020 [place] DO, SARINA D Ot I48. 20 CHRONIC ATRIAL FIBRILLATION, UNSPECIFIED 04/03/2020 [place] DO, SARINA D Ot Z79. 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 7 LEFT BUNDLE-BRANCH BLOCK, UNSPECIFIED 04/06/2020 [place] DO, SARINA D Ot I48. 20 CHRONIC ATRIAL FIBRILLATION, UNSPECIFIED 04/06/2020 [place] DO, SARINA D Ot Z79. 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 04/24/2020 YAYA HOOKS FACC, ALI FACP CCDS Ot R94.31 ABNORMAL ELECTROCARDIOGRAM [ECG] [EKG] 04/24/2020 YAYA HOOKS FACC, MARIKA FACP CCDS Ot I10 ESSENTIAL (PRIMARY) HYPERTENSION 04/24/2020 YAYA HOOKS FACC, MARIKA FACP CCDS Ot I48.2 CHRONIC ATRIAL FIBRILLATION 04/24/2020 YAYA HOOKS FACC, MARIKA FACP CCDS Ot 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 04/24/2020 YAYA MARTINOC, [facility] FACP CCDS Ot R94.31 ABNORMAL ELECTROCARDIOGRAM [ECG] [EKG] 05/01/2020 [facility], ALI FACP CCDS Ot I10 ESSENTIAL (PRIMARY) HYPERTENSION 05/01/2020 [facility], ALI FACP CCDS Ot I48.2 CHRONIC ATRIAL FIBRILLATION 05/01/2020 [facility], ALI FACP CCDS Ot 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 05/01/2020 [facility], ALI FACP CCDS Ot R94.31 ABNORMAL ELECTROCARDIOGRAM [ECG] [EKG] 05/01/2020 [facility], ALI FACP CCDS Ot I10 ESSENTIAL (PRIMARY) HYPERTENSION 05/01/2020 [facility], ALI FACP CCDS Ot I48.2 CHRONIC ATRIAL FIBRILLATION 05/01/2020 [facility], ALI FACP CCDS Ot 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 05/01/2020 [facility], ALI FACP CCDS Ot R94.31 ABNORMAL ELECTROCARDIOGRAM [ECG] [EKG] Procedures Code Description Performed By [place] [facility] [place] [address] ROUT INE VENIPUNCTURE 04/08/2013 86579 CBC 04/08/2013 72805 CMP 04/08/2013 99654 LIPI D PANEL 04/08/2013 0636022 GF R CALC (RESULT ONLY) 04/08/2013 41852 PSA FREE AND TOTAL 04/08/2013 63247 TEST OSTERONE PANEL (FREE, TOTAL, and SHBG) 04/08/2013 13916 TSH 04/08/2013 73604 UA L BRIGIDA DIP 11/08/2013 78504 BIOP SY SKIN LESION (SINGLE) 09/12/2014 51119 EXCI DUANE BENIGN LESION 2.1-3 cm (specify location in Med[facility] description) 09/12/2014 Results Test Result Range Comp. Metabolic Panel (14) - 11/06/16 14 :57 Glucose, Serum 74 mg/dL 65-99 BUN 16 mg/dL 6-24 Creatinine, Serum 1.00 mg/dL 0.76-1.27 eGFR If NonAfricn Am 83 mL/min/1.73 >59 eGFR If Africn Am 95 mL/min/1.73 >59 BUN/Creatinine Ratio 16 9-20 Sodium, Serum 143 mmol/L 134-144 Potassium, Serum 4.3 mmol/L 3.5-5.2 Chloride, Serum 102 mmol/L 96-106 Carbon Dioxide, Total 23 mmol/L 18-29 Calcium, Serum 8.9 mg/dL 8.7-10.2 Protein, Total, Serum 6.4 g/dL 6.0-8.5 Albumin, Serum 4.1 g/dL 3.5-5.5 Globulin, Total 2.3 g/dL 1.5-4.5 A/G Ratio 1.8 1.1-2.5 Bilirubin, Total 0.9 mg/dL 0.0-1.2 Alkaline Phosphatase, S 43 IU/L 39-117 AST (SGOT) 32 IU/L 0-40 ALT (SGPT) 20 IU/L 0-44 Lipid Panel - 11/06/16 14:57 Cholesterol, Total 224 mg/dL 100-199 Triglycerides 44 mg/dL 0-149 HDL Cholesterol 55 mg/dL >39 VLDL Cholesterol Refugio 9 mg/dL 5-40 LDL Cholesterol Calc 160 mg/dL 0-99 TSH - 03/31/18 09:49 TSH 4.17 mIU/L 0.40-4.50 CBC - 03/05/20 11:24 WHITE BLOOD CELL COUNT 5.3 Thousand/uL 3 .8-10.8 RED BLOOD CELL COUNT 5.50 Million/uL 4.2 0-5.80 HEMOGLOBIN 16.2 g/dL 13.2-17.1 HEMATOCRIT 48.8 % 38.5-50.0 MCV 88.7 fL 80.0-100.0 MCH 29.5 pg 27.0-33.0 MCHC 33.2 g/dL 32.0-36.0 RDW 13.1 % 11.0-15.0 PLATELET COUNT 163 Thousand/uL 140-400 MPV 11.8 fL 7.5-12.5 ABSOLUTE NEUTROPHILS 3185 cells/uL 1500- 7800 ABSOLUTE LYMPHOCYTES 1341 cells/uL 850-3 900 ABSOLUTE MONOCYTES 652 cells/uL 200-950 ABSOLUTE EOSINOPHILS 80 cells/uL 15-500 ABSOLUTE BASOPHILS 42 cells/uL 0-200 NEUTROPHILS 60.1 % NRG LYMPHOCYTES 25.3 % NRG MONOCYTES 12.3 % NRG EOSINOPHILS 1.5 % NRG BASOPHILS 0.8 % NRG PSA - 03/05/20 11:24 PSA, TOTAL 0.9 ng/mL < OR = 4.0 TSH - 03/05/20 11:24 TSH 6.72 mIU/L 0.40-4.50 Coronavirus SARS-CoV-2 SO 2018 0 13:50 Coronavirus Ab [Units/volume] in Serum Negative Negative Coronavirus SARS-CoV-2 SO 2018 0 08:26 Coronavirus Ab [Units/volume] in Serum Negative Negative Encounters ACCT No. Visit Date/Time Discharge Status Pt. Type Provider Facility Loc./Unit Complaint [id number] 11/19/2018 01:16:01 Document Registration [id number] 09/22/2014 12:41:00 09/22/2014 23:59: 59 CLS Outpatient CASSI MENENDEZ DO [id number] 09/12/2014 13:32:00 09/12/2014 23:59: 59 CLS Outpatient PHOEBE ROGERS APRN [id number] 11/08/2013 14:22:00 11/08/2013 23:59: 59 CLS Outpatient PHOEBE ROGERS APRN [id number] 04/08/2013 11:50:00 04/08/2013 23:59: 59 CLS Outpatient PHOEBE ROGERS APRN [id number] 06/23/2012 11:18:00 06/23/2012 23:59: 59 CLS Outpatient PHOEBE ROGERS APRN [id number] 06/23/2012 11:18:00 06/23/2012 23:59:5 9 CLS Outpatient [id number] 04/06/2013 15:53:00 Document Registration [id number] 03/05/2020 11:20:00 03/05/2020 23:59: 59 CLS Outpatient PHOEBE ROGERS APRN [facility] [id number] 03/05/2020 11:20:00 Document Registration [id number] 03/31/2018 09:20:00 Document Registration [id number] 05/04/2020 09:21:00 020 12:53:00 DIS Outpatient SARINA HOBBS DO [facility] PREOP COLONOSCOPY [id number] 04/03/2020 08:22:00 020 11:35:00 DIS Outpatient SARINA HOBBS DO [facility] ENDO HX COLON POLYPS [id number] 03/30/2020 06:30:00 05/08/2 020 15:43:00 DIS Outpatient SARINA HOBBS DO [facility] PREOP COLONOSCOPY [id number] 10/23/2015 07:58:00 015 23:59:59 CLS Outpatient YAYA HOOKS FACC, MARIKA MARTINOP CC DS [facility] CARD ABD EKG,MATTHEW B [id number] 10/12/2015 08:11:00 015 23:59:59 CLS Outpatient YAYA HOOKS FACC, MARIKA MARTINOP CC DS [facility] CARD ABD EKG,MATTHEW B [id number] 05/08/2020 09:40:00 P EN Preadmit SARINA HOBBS DO [facility] ENDO COLON POLYP [id number] 05/21/2012 05:45:00 Document Registration [id number] 05/18/2012 09:41:00 Document Registration [id number] 11/07/2016 10:05:00 Document Registration
--- OUTSIDE RECORDS SUMMARY | 2020-05-08 08:03 | XMS REPORT ---
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 Name Role Phone PHOEBE ROGERS CP Unavailable Allergies No Known Allergies Problems Problem Type Condition Code Onset Dates Condition Statu s Assessment Encounter for immunization Z23 A ctive Problem Inguinal hernia without ment ion of obstruction or gangrene, bilateral, (not specified as recurrent) 550.92 Active Problem Umbilical hernia without mention of obstruction or edd grene 553.1 Active Problem Hernia of unspecified site o f abdominal cavity without mention of obstruction or gangrene 553.9 Active Problem Basal cell carcinoma of skin of trunk, except scrotum 173.51 Active Problem Encounter for removal of sutures V58.32 Active Problem 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
--- OUTSIDE RECORDS SUMMARY | 2020-05-08 08:03 | XMS REPORT ---
Author Author Karrie ROGERS Organization [facility] Address [address] [place] [address] Care Team Providers Care Machine Ii Coremaker Name Role Phone PHOEBE ROGERS Unavailable PROBLEMS Type Condition ICD9-CM Code JWX94-[id number] Code Onset Dates Condition S tatus SNOMED Code Problem Umbilical hernia without mention of obstruction or gangren e 553.1 Active 425952661 Problem Psychosexual dysfunction with inhibited sexual excitement 302.72 Active 231126853775017 Problem Inguinal hernia without ment ion of obstruction or gangrene, bilateral, (not specified as recurrent) 550.92 Active 69848088 Problem Basal cell carcinoma of skin of trunk, except scrotum 173.51 Active 435032542 Problem Encounter for removal of sutures V58.32 Active 38877126 Problem Health examination of defined subpopulation V70.5 Active 970104253 Problem Hernia of unspecified site o f abdominal cavity without mention of obstruction or gangrene 553.9 Active 5251 5009 Problem Hypertension, benign I10 Active 46663720 Problem Other cardiac arrhythmia I49.8 Activ e 50142245 Problem Essential (primary) hypertension I10 Active 82722573 Problem Atrial fibrillation, chronic I48.2 A ctive 710015199 Problem Vasculogenic erectile dysfun ction, 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 Active 544659374 Problem 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 Active 129184082 ALLERGIES No Known Allergies ENCOUNTERS Encounter Location Date Diagnosis [facility] [address] [facility] [id number] [address] [place] [address] March, Hypertension, benign I10 [facility] [address] [facility] [id number] [address] [place] [address] March, Hypertension, benign I10 [facility] [address] [facility] [id number] [address] [place] [address] Dec, [place] [address] [place] [id number] [address] [place] [address] Nov, Other cardiac arrhythmia I49 .8 [place] [address] [place] [id number] [address] [place] [address] Apr, Vasculogenic erectile dysfun ction, 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 [place] [address] [place] [id number] [place] [address] Feb, [place] [address] [place] [id number] [place] [address] Oct, 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 [place] [address] [place] [id number] [place] [address] 15 Oct, 2016 Atrial fibrillation, chronic I48.2 and Essential (primary) hypertension I10 [place] [address] [address] Sep, Encounter for immunization Z 23 [place] [address] [id number] 08 Jul, 2016 Essential hypertension I10 a nd Chronic atrial fibrillation I48.2 [place] [address] [place] [id number] [place] [address] Jun, [place] [address] [place] [id number] [place] [address] May, Basal cell carcinoma of skin of trunk, except scrotum 173.51 ; Family history of colon cancer V16.0 and ED (erectile dysfunction) 607.84 [place] [address] [place] [id number] [address] [place] [address] May, Family history of colon canc er V16.0 [place] [address] [place] [id number] [address] [place] [address] May, Family history of colon canc er V16.0 and Erectile dysfunction 607.84 [facility] [address] [id number] [address] [place] [address], [place] [address] Apr, [facility] [address] [id number] [address] [place] [address], [place] [address] Feb, [facility] [address] [id number] [address] [place] [address], [place] [address] Dec, [facility] [address] [id number] [address] [place] [address], [place] [address] Dec, [facility] [address] [id number] [address] [place] [address], [place] [address] Sep, [facility] [address] [id number] [address] [place] [address], [place] [address] Sep, [facility] [address] [id number] [address] [place] [address], [place] [address] Aug, [facility] [address] [id number] [address] [place] [address] Aug, [facility] [address] [id number] [address] [place] [address], [place] [address] Aug, [facility] [address] [id number] [address] [place] [address] Aug, [facility] [address] [id number] [address] [place] [address], [place] [address] Aug, [facility] [address] [id number] [address] [place] [address] Aug, [facility] [address] [id number] [address] [place] [address], [place] [address] Feb, [facility] [address] [id number] [address] [place] [address] Feb, [facility] [address] [id number] [address] [place] [address], [place] [address] Dec, [facility] [address] [id number] [address] [place] [address], [place] [address] Dec, [facility] [address] [id number] [address] [place] [address], [place] [address] Oct, [facility] [address] [id number] [address] [place] [address], [place] [address] Oct, [facility] [address] [id number] [address] [place] [address], [place] [address] Sep, [facility] [address] [id number] [address] [place] [address], [place] [address] Sep, [facility] [address] [id number] [address] [place] [address], [place] [address] Aug, [facility] [address] [id number] [address] [place] [address], [place] [address] Aug, [facility] [address] [id number] [address] [place] [address], [place] [address] Jun, [facility] [address] [id number] [address] [place] [address], [place] [address] March, [facility] [address] [id number] [address] [place] [address], [place] [address] March, [facility] [address] [id number] [address] [place] [address], [place] [address] March, [facility] [address] [id number] [address] [place] [address], [place] [address] March, [facility] [address] [id number] [address] [place] [address], [place] [address] March, [facility] [address] [id number] [address] [place] [address], [place] [address] Feb, [facility] [address] [id number] [address] [place] [address], [place] [address] Dec, [facility] [address] [id number] [address] [place] [address], [place] [address] Nov, [facility] [address] [id number] [address] [place] [address] Aug, [facility] [address] [id number] [address] [place] [address] Aug, [facility] [address] [id number] [address] [place] [address] Jun, [facility] [address] [id number] [address] [place] [address] Jun, [facility] [address] [id number] [address] [place] [address] Jun, [facility] [address] [id number] [address] [place] [address] Jun, [facility] [address] [id number] [address] [place] [address] Apr, [facility] [address] [id number] [address] [place] [address] Apr, [facility] [address] [id number] [address] [place] [address] Feb, [facility] [address] [id number] [address] [place] [address] Feb, IMMUNIZATIONS No Known Immunizations SOCIAL HISTORY Never Assessed REASON FOR VISIT Physical, Khanh would like [facility] to take over PT care-Michelle RODGERS PLAN OF CARE VITAL SIGNS Height 72 in 2017-12-10 Weight 158.6 lbs 2017-12-10 Temperature 97.5 degrees Fahrenheit 2017-12-10 Heart Rate 60 bpm 2017-12-10 Respiratory Rate 18 2017-12-10 BMI 21.51 kg/m2 2017-12-10 Blood pressure systolic 128 mmHg 2017-12-10 Blood pressure diastolic 82 mmHg 2017-12-10 MEDICATIONS Medication Instructions Dosage Frequency Start Date End Date Duration S tatus Cialis 5 mg Oral Once a day TAKE ONE TABLET BY MOUTH EVERY 24 HOURS 24h 30 Active Eliquis 5 mg Orally 2 times a day 12h Active Amlodipine Besylate 5 MG Orally Once a day 1 tablet 24h Active RESULTS No Results PROCEDURES No Known [...]
--- OUTSIDE RECORDS SUMMARY | 2020-05-08 08:03 | XMS REPORT ---
Author Author Karrie ROGERS Organization [employer] Address Unknown Phone Unavailable Care Team Providers Care Metal Mine Inspector Name Role Phone PHOEBE ROGERS CP Unavailable Allergies No Known Allergies Problems Problem Type Condition Code Onset Dates Condition Statu s Problem Inguinal hernia without ment ion of [...] subpopulation V70.5 Active Medications No Known Medications Results No Known Results Summary Purpose [employer] Submission
--- NOTE | 2020-05-08 08:17 | Progress Note-Pre Operative ---
Pre-Operative Progress Note H&P Reviewed The H&P was reviewed, patient examined and no changes noted. Date Seen by Provider: May 08, 2020 Time Seen by Provider: 08: Date H&P Reviewed: May 08, 2020 Time H&P Reviewed: 08:17 Pre-Operative Diagnosis: hx colon polyp SARINA HOBBS DO May 08, 2020 08:17
[2020-05-08] MEDS ORDERED: proPOfol 200 MG/20 ML (DIPRIVAN) VIAL IV ONE ×2 (08:51→09:24)
[2020-05-08] MEDS ORDERED: MIDAZOLAM 2 MG/2 ML (VERSED) VIAL ONE (08:52)
--- NOTE | 2020-05-08 09:36 | Progress Note-Post Operative ---
Post-Operative Progess Note Surgeon (s)/Ob/Gyn Doctor (s) Surgeon SARINA HOBBS DO Ob/Gyn Doctor: na Pre-Operative Diagnosis hx colon polyp Post-Operative Diagnosis hepatic flexure polyp Procedure & Operative Findings Date of Procedure 05/08/20 Procedure Performed/Findings colonoscopy Anesthesia Type per [facility] Estimated Blood Loss Estimated blood loss (mL): none Specimens/Packing Specimens Removed na SARINA HOBBS DO May 08, 2020 09:36
--- NOTE | 2020-05-08 09:37 | Discharge Inst-Simple/Standard ---
Discharge Inst-Standard Discharge Medications New, Converted or Re-Newed RX: RX on Chart Patient Instructions/Follow Up Plan of Care/Instructions/FU: 1 week Caryl Activity as Tolerated: Yes Discharge Diet: Regular Diet SARINA HOBBS DO May 08, 2020 09:37
--- NOTE | 2020-05-08 12:27 | Anesthesia-General Post-Op ---
MAC Patient Condition Mental Status/LOC: Same as Preop Cardiovascular: Satisfactory Nausea/Vomiting: Absent Respiratory: Satisfactory Pain: Controlled Complications: Absent Post Op Complications Complications None Follow Up Care/Instructions Patient Instructions None needed. Anesthesiology Discharge Order Discharge Order Patient was seen this morning after the procedure and he was doing well, no complaints, stable vital signs, no apparent adverse anesthesia problems. JESSA KERR DO May 08, 2020 12:27
--- NOTE | 2020-05-08 13:01 | OPERATIVE REPORT ---
DATE OF SERVICE: 05/08/2020 PREOPERATIVE DIAGNOSIS: History of polyps. POSTOPERATIVE DIAGNOSIS: Hepatic flexure polyp. PROCEDURE: Colonoscopy. SURGEON: Sarina Carroll DO ANESTHESIA: Per MDA. ESTIMATED BLOOD LOSS: None. COMPLICATIONS: None. INDICATIONS: The patient is a 64-year-old male with history of polyps. He understands risks and benefits of procedure and wished to proceed with colonoscopy prior to colon resection to try another attempt. He understands risks and benefits and wished to proceed. Consent was signed in the chart. DESCRIPTION OF PROCEDURE: The patient was taken to the endoscopy suite, placed in left lateral recumbent position. Timeout was performed. Digital rectal exam was performed. There were no palpable polyps, masses or ulcerations. Scope was inserted in the rectum and advanced all the way to cecum with minimal difficulty. Prep was adequate. Scope was then slowly retracted back. There were no polyps, masses or ulcerations within the cecum and ascending colon; hepatic flexure on the back side of a fold, polyp was again revisualized. Multiple attempts and repositioning was used to try to attempt for polypectomy; however, this was unsuccessful due to positioning of the polyp and it being a larger polyp. The scope was then continuously retracted back the tattooing distal to the polyp was visualized. Scope was then continuously retracted back. There were no other polyps, masses or ulcerations within the remainder of the transverse, descending and sigmoid colon. Once in the rectum, scope was retroflexed noting no other pathology. Scope was returned to its normal position, slowly withdrawn until completely removed. The patient tolerated procedure well without any complications. He was taken to recovery room in stable condition. RECOMMENDATIONS: The patient will be recommended to have right colon resection for removal. The patient will follow up in one week in the office to discuss this. Job ID: [id number] DocumentID: [id number] Dictated Date: 05/08/2020 09:40:31 Audit Director Date: 05/08/2020 13:00:03 Dictated By: SARINA CARROLL DO
== END 2020-05-08 10:37 | disposition home or self-care (01) ==
LOC: ENDO 07:47
PROVIDERS: ATTEND Surgery
DX: D12.6 Benign neoplasm of colon, unspecified (principal); I10 Essential (primary) hypertension; I48.91 Unspecified atrial fibrillation; I73.00 Raynaud's syndrome without gangrene; I44.7 Left bundle-branch block, unspecified; Z87.891 Personal history of nicotine dependence; Z79.899 Other long term (current) drug therapy; Z98.52 Vasectomy status; Z86.010 Personal history of colon polyps; Z79.01 Long term (current) use of anticoagulants

== ENCOUNTER 2020-06-28 05:46 | Outpatient (RCR) | payer OTHER ==
[~2020-06-28] VITALS: Ht 182 cm; Wt 71.8 kg
[~2020-06-28 05:46] MED LIST changes: +AMLO-250 PO; -AMLO5TAB9 PO
[2020-07-08] MEDS ORDERED: TRAM-42 PO (13:58)
== END 2020-09-26 | disposition home or self-care (01) ==
LOC: PREOP 05:46
PROVIDERS: ATTEND Surgery
DX: Z01.818 Encounter for other preprocedural examination (principal)

== ENCOUNTER 2020-07-05 08:00 | Inpatient (IN) | payer OTHER ==
[2020-07-05] VITALS (18 sets, daily range): BP systolic 140–195; BP diastolic 84–116
[~2020-07-05] VITALS: Ht 182 cm; Wt 71.8 kg
[~2020-07-05 08:00] MED LIST changes: -AMLO-250 PO; +AMLO5TAB9 PO
--- OUTSIDE RECORDS SUMMARY | 2020-07-05 09:16 | XMS REPORT ---
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 Active 410291209 Problem Vasculogenic erectile dysfun ction, 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 Active 663470997 Problem Other cardiac arrhythmia I49.8 Activ e 29914327 ALLERGIES No Information ENCOUNTERS Encounter Location Date Diagnosis [place] [address] [place] [id number] [address] [place] [address] May, [facility] [address] [place] [id number] [address] [place] [address] May, [facility] [address] [place] [id number] [address] [place] [address] Feb, Hypertension, benign I10 [facility] [address] [facility] [id number] [address] [place] [address] Feb, Hypertension, benign I10 and Erectile dysfunction, unspecified erectile dysfunction type N52.9 [facility] [address] [facility] [id number] [address] [place] [address] Jan, [facility] [address] [facility] [id number] [address] [place] [address] Nov, [facility] [address] [place] [id number] [address] [place] [address] Nov, [facility] [address] [facility] [id number] [address] [place] [address] Oct, Erectile dysfunction, unspec ified erectile dysfunction type N52.9 [facility] [address] [facility] [id number] [address] [place] [address] Apr, Vasculogenic erectile dysfun ction, 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 [facility] [address] [facility] [id number] [address] [place] [address] Oct, Atrial fibrillation, chronic I48.2 and Erectile dysfunction, unspecified erectile dysfunction type N52.9 [facility] [address] [facility] [id number] [address] [place] [address] Aug, [facility] [address] [facility] [id number] [address] [place] [address] March, Hypertension, benign I10 [facility] [address] [facility] [id number] [address] [place] [address] March, Hypertension, benign I10 [facility] [address] [facility] [id number] [address] [place] [address] Dec, [facility] [address] [facility] [id number] [address] [place] [address] Nov, Other cardiac arrhythmia I49 .8 [facility] [address] [facility] [id number] [address] [place] [address] Apr, Vasculogenic erectile dysfun ction, 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 [facility] [address] [facility] [id number] [address] [place] [address] Feb, [facility] [address] [facility] [id number] [address] [place] [address] Oct, 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 [facility] [address] [facility] [id number] [address] [place] [address] 15 Oct, 2016 Atrial fibrillation, chronic I48.2 and Essential (primary) hypertension I10 [facility] [address] [facility] [id number] [address] [place] [address] 17 Sep, 2016 Encounter for immunization Z 23 [facility] [address] [facility] [id number] [address] [place] [address] 08 Jul, 2016 Essential hypertension I10 a nd Chronic atrial fibrillation I48.2 [facility] [address] [place] [id number] [address] [place] [address] Jun, [facility] [address] [place] [id number] [address] [place] [address] May, Basal cell carcinoma of skin of trunk, except scrotum 173.51 ; Family history of colon cancer V16.0 and ED (erectile dysfunction) 607.84 [facility] [address] [place] [id number] [address] [place] [address] May, Family history of colon canc er V16.0 [facility] [address] [place] [id number] [address] [place] [address] May, Family history of colon canc er V16.0 and Erectile dysfunction 607.84 [facility] [address] [place] [id number] [address] [place] [address] Apr, [facility] [address] [place] [id number] [address] [place] [address] Feb, [facility] [address] [facility] [id number] [address] [place] [address] Dec, [facility] [address] [facility] [id number] [address] [place] [address] Dec, [facility] [address] [facility] [id number] [address] [place] [address] Sep, [facility] [address] [facility] [id number] [address] [place] [address] Sep, [facility] [address] [id number] [address] [place] [address], [place] [address] Aug, [facility] [address] [id number] [address] [place] [address], [place] [address] Aug, [facility] [address] [id number] [address] [place] [address], [place] [address] Aug, [facility] [address] [id number] [address] [place] [address], [place] [address] Aug, [facility] [address] [id number] [address] [place] [address], [place] [address] Aug, [facility] [address] [id number] [address] [place] [address], [place] [address] Aug, [facility] [address] [id number] [address] [place] [address], [place] [address] Feb, [facility] [address] [id number] [address] [place] [address], [place] [address] Feb, [facility] [address] [id number] [address] [place] [address], [place] [address] Dec, [facility] [address] [id number] [address] [place] [address], [place] [address] Dec, [facility] [address] [id number] [address] [place] [address], [place] [address] Oct, [facility] [address] [id number] [address] [place] [address], [place] [address] Oct, [facility] [address] [id number] [address] [place] [address], [place] [address] Sep, [facility] [address] [id number] [address] [place] [address], [place] [address] Sep, [facility] [address] [id number] [address] [place] [address], [place] [address] Aug, [facility] [address] [id number] [address] [place] [address], [place] [address] Aug, [facility] [address] [id number] [address] [place] [address], [place] [address] Jun, [facility] [address] [id number] [address] [place] [address], [place] [address] March, [facility] [address] [id number] [address] [place] [address], [place] [address] March, [facility] [address] [id number] [address] [place] [address], [place] [address] March, [facility] [address] [id number] [address] [place] [address], [place] [address] March, [facility] [address] [id number] [address] [place] [address], [place] [address] March, [facility] [address] [id number] [address] [place] [address], [place] [address] Feb, [facility] [address] [id number] [address] [place] [address], [place] [address] Dec, [facility] [address] [id number] [address] [place] [address], [place] [address] Nov, [facility] [address] [id number] [address] [place] [address], [place] [address] Aug, [facility] [address] [id number] [address] [place] [address], [place] [address] Aug, [facility] [address] [id number] [address] [place] [address], [place] [address] Jun, [facility] [address] [id number] [address] [place] [address], [place] [address] Jun, [facility] [address] [id number] [address] [place] [address], [place] [address] Jun, [facility] [address] [id number] [address] [place] [address], [place] [address] Jun, [facility] [address] [id number] [address] [place] [address] Apr, [facility] [address] [facility] [id number] [address] [place] [id number] Apr, [facility] [address] [facility] [id number] [address] [place] [id number] Feb, [facility] [address] [facility] [id number] [address] [place] [id number] Feb, IMMUNIZATIONS No Known Immunizations SOCIAL HISTORY Never Assessed REASON FOR VISIT PLAN OF CARE VITAL SIGNS MEDICATIONS Unknown Medications RESULTS No Results PROCEDURES Procedure Date Ordered Result Body Site COMPLETE CBC W/AUTO DIFF WBC April 08, 2013 ASSAY THYROID STIM HORMONE April 08, 2013 ASSAY OF TESTOSTERONE April 08, 2013 LIPID PANEL April 08, 2013 COMPREHEN METABOLIC PANEL April 08, 2013 ASSAY OF PSA, FREE April 08, 2013 VENIPUNCT, ROUTINE* April 08, 2013 INSTRUCTIONS MEDICATIONS ADMINISTERED No Known Medications MEDICAL [...]
--- OUTSIDE RECORDS SUMMARY | 2020-07-05 09:16 | XMS REPORT ---
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 Active 873778564 Problem Vasculogenic erectile dysfun ction, 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 Active 845554030 Problem Other cardiac arrhythmia I49.8 Activ e [id number] ALLERGIES No Information ENCOUNTERS Encounter Location Date Diagnosis [place] [address] [id number] 14 Feb, 2020 Hypertension, benign I10 [place] [address] [place] [id number] [address] [place] [id number] 13 Feb, 2020 Hypertension, benign I10 and Erectile dysfunction, unspecified erectile dysfunction type N52.9 [facility] [address] [place] [id number] [address] [place] [address] Jan, [facility] [address] [place] [id number] [address] [place] [address] Nov, [facility] [address] [place] [id number] [address] [place] [address] Nov, [facility] [address] [place] [id number] [address] [place] [address] Oct, Erectile dysfunction, unspec ified erectile dysfunction type N52.9 [facility] [address] [facility] [id number] [address] [place] [address] Apr, Vasculogenic erectile dysfun ction, 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 [facility] [address] [facility] [id number] [address] [place] [address] Oct, Atrial fibrillation, chronic I48.2 and Erectile dysfunction, unspecified erectile dysfunction type N52.9 [facility] [address] [facility] [id number] [address] [place] [address] Aug, [facility] [address] [facility] [id number] [address] [place] [phone] March, Hypertension, benign I10 [facility] [address] [facility] [id number] [address] [place] [address] March, Hypertension, benign I10 [facility] [address] [facility] [id number] [address] [place] [address] Dec, [facility] [address] [facility] [id number] [address] [place] [address] Nov, Other cardiac arrhythmia I49 .8 [facility] [address] [facility] [id number] [address] [place] [address] Apr, Vasculogenic erectile dysfun ction, 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 [facility] [address] [facility] [id number] [address] [place] [address] Feb, [facility] [address] [facility] [id number] [address] [place] [address] Oct, 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 [facility] [address] [facility] [id number] [address] [place] [address] Oct, Atrial fibrillation, chronic I48.2 and Essential (primary) hypertension I10 [facility] [address] [facility] [id number] [address] [place] [address] Sep, Encounter for immunization Z 23 [facility] [address] [id number] [address] [place] [phone] 08 Jul, 2016 Essential hypertension I10 a nd Chronic atrial fibrillation I48.2 [facility] [address] [facility] [id number] [address] [place] [address] Jun, [facility] [address] [facility] [id number] [address] [place] [address] May, Basal cell carcinoma of skin of trunk, except scrotum 173.51 ; Family history of colon cancer V16.0 and ED (erectile dysfunction) 607.84 [facility] [address] [facility] [id number] [address] [place] [address] May, Family history of colon canc er V16.0 [facility] [address] [facility] [id number] [address] [place] [address] May, Family history of colon canc er V16.0 and Erectile dysfunction 607.84 [facility] [address] [id number] [address] [place] [address] Apr, [facility] [address] [facility] [id number] [address] [place] [phone] Feb, [facility] [address] [facility] [id number] [address] [place] [phone] Dec, [facility] [address] [facility] [id number] [address] [place] [address] Dec, [facility] [address] [facility] [id number] [address] [place] [phone] Sep, [facility] [address] [facility] [id number] [address] [place] [address] Sep, [facility] [address] [facility] [id number] [address] [place] [phone] Aug, [facility] [address] [facility] [id number] [address] [place] [phone] Aug, [facility] [address] [id number] [address] [place] [address], [place] [address] Aug, [facility] [address] [id number] [address] [place] [address], [place] [address] Aug, [facility] [address] [id number] [address] [place] [address], [place] [address] Aug, [facility] [address] [id number] [address] [place] [address], [place] [address] Aug, [facility] [address] [id number] [address] [place] [address], [place] [address] Feb, [facility] [address] [id number] [address] [place] [address], [place] [address] Feb, [facility] [address] [id number] [address] [place] [address], [place] [address] Dec, [facility] [address] [id number] [address] [place] [address], [place] [address] Dec, [facility] [address] [id number] [address] [place] [address], [place] [address] Oct, [facility] [address] [id number] [address] [place] [address], [place] [address] Oct, [facility] [address] [id number] [address] [place] [address], [place] [address] Sep, [facility] [address] [id number] [address] [place] [address], [place] [address] Sep, [facility] [address] [id number] [address] [place] [address], [place] [address] Aug, [facility] [address] [id number] [address] [place] [address], [place] [address] Aug, [facility] [address] [id number] [address] [place] [address], [place] [address] Jun, [facility] [address] [id number] [address] [place] [address], [place] [address] March, [facility] [address] [id number] [address] [place] [address], [place] [address] March, [facility] [address] [id number] [address] [place] [address], [place] [address] March, [facility] [address] [id number] [address] [place] [address], [place] [address] March, [facility] [address] [id number] [address] [place] [address], [place] [address] March, [facility] [address] [id number] [address] [place] [address], [place] [address] Feb, [facility] [address] [id number] [address] [place] [address], [place] [address] Dec, [facility] [address] [id number] [address] [place] [address], [place] [address] Nov, [facility] [address] [id number] [address] [place] [address], [place] [address] Aug, [facility] [address] [id number] [address] [place] [address], [place] [address] Aug, [facility] [address] [id number] [address] [place] [address], [place] [address] Jun, [facility] [address] [id number] [address] [place] [address], [place] [address] Jun, [facility] [address] [id number] [address] [place] [address], [place] [address] Jun, [facility] [address] [id number] [address] [place] [address], [place] [address] Jun, [facility] [address] [id number] [address] [place] [address], [place] [address] Apr, [facility] [address] [id number] [address] [place] [address], [place] [address] Apr, [facility] [address] [id number] [address] [address] Feb, [facility] [address] [facility] [id number] [address] [address] Feb, IMMUNIZATIONS No Known Immunizations SOCIAL HISTORY [...]
--- OUTSIDE RECORDS SUMMARY | 2020-07-05 09:16 | XMS REPORT ---
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 730841021 Problem Vasculogenic erectile dysfun ction, 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 Active 226885828 Problem Other cardiac arrhythmia I49.8 Activ e [id number] ALLERGIES No Information ENCOUNTERS Encounter Location Date Diagnosis [place] [address] [place] [id number] [address] [place] [address] May, [facility] [address] [place] [id number] [address] [place] [address] May, [facility] [address] [place] [id number] [address] [place] [address] Feb, Hypertension, benign I10 [facility] [address] [facility] [id number] [address] [place] [address] Feb, Hypertension, benign I10 and Erectile dysfunction, unspecified erectile dysfunction type N52.9 [facility] [address] [facility] [id number] [address] [place] [address] Jan, [facility] [address] [facility] [id number] [address] [place] [address] Nov, [facility] [address] [place] [id number] [address] [place] [address] Nov, [facility] [address] [facility] [id number] [address] [place] [address] Oct, Erectile dysfunction, unspec ified erectile dysfunction type N52.9 [facility] [address] [facility] [id number] [address] [place] [address] Apr, Vasculogenic erectile dysfun ction, 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 [facility] [address] [facility] [id number] [address] [place] [address] Oct, Atrial fibrillation, chronic I48.2 and Erectile dysfunction, unspecified erectile dysfunction type N52.9 [facility] [address] [facility] [id number] [address] [place] [address] Aug, [facility] [address] [facility] [id number] [address] [place] [address] March, Hypertension, benign I10 [facility] [address] [facility] [id number] [address] [place] [address] March, Hypertension, benign I10 [facility] [address] [facility] [id number] [address] [place] [phone] Dec, [facility] [address] [facility] [id number] [address] [place] [address] Nov, Other cardiac arrhythmia I49 .8 [facility] [address] [facility] [id number] [address] [place] [address] Apr, Vasculogenic erectile dysfun ction, 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 [facility] [address] [facility] [id number] [address] [place] [address] Feb, [facility] [address] [facility] [id number] [address] [place] [address] Oct, 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 [facility] [address] [facility] [id number] [address] [place] [phone] 15 Oct, 2016 Atrial fibrillation, chronic I48.2 and Essential (primary) hypertension I10 [facility] [address] [facility] [id number] [address] [place] [address] 17 Sep, 2016 Encounter for immunization Z 23 [facility] [address] [facility] [id number] [address] [place] [address] 08 Jul, 2016 Essential hypertension I10 a nd Chronic atrial fibrillation I48.2 [facility] [address] [place] [id number] [address] [place] [address] Jun, [facility] [address] [place] [id number] [address] [place] [address] May, Basal cell carcinoma of skin of trunk, except scrotum 173.51 ; Family history of colon cancer V16.0 and ED (erectile dysfunction) 607.84 [facility] [address] [place] [id number] [address] [place] [address] May, Family history of colon canc er V16.0 [facility] [address] [place] [id number] [address] [place] [address] May, Family history of colon canc er V16.0 and Erectile dysfunction 607.84 [facility] [address] [place] [id number] [address] [place] [address] Apr, [facility] [address] [place] [id number] [address] [place] [address] Feb, [facility] [address] [facility] [id number] [address] [place] [phone] Dec, [facility] [address] [facility] [id number] [address] [place] [address] Dec, [facility] [address] [facility] [id number] [address] [place] [phone] Sep, [facility] [address] [facility] [id number] [address] [place] [address] Sep, [facility] [address] [id number] [address] [place] [address], [place] [address] Aug, [facility] [address] [id number] [address] [place] [address], [place] [address] Aug, [facility] [address] [id number] [address] [place] [address], [place] [address] Aug, [facility] [address] [id number] [address] [place] [address], [place] [address] Aug, [facility] [address] [id number] [address] [place] [address], [place] [address] Aug, [facility] [address] [id number] [address] [place] [address], [place] [address] Aug, [facility] [address] [id number] [address] [place] [address], [place] [address] Feb, [facility] [address] [id number] [address] [place] [address], [place] [address] Feb, [facility] [address] [id number] [address] [place] [address], [place] [address] Dec, [facility] [address] [id number] [address] [place] [address], [place] [address] Dec, [facility] [address] [id number] [address] [place] [address], [place] [address] Oct, [facility] [address] [id number] [address] [place] [address], [place] [address] Oct, [facility] [address] [id number] [address] [place] [address], [place] [address] Sep, [facility] [address] [id number] [address] [place] [address], [place] [address] Sep, [facility] [address] [id number] [address] [place] [address], [place] [address] Aug, [facility] [address] [id number] [address] [place] [address], [place] [address] Aug, [facility] [address] [id number] [address] [place] [address], [place] [address] Jun, [facility] [address] [id number] [address] [place] [address], [place] [address] March, [facility] [address] [id number] [address] [place] [address], [place] [address] March, [facility] [address] [id number] [address] [place] [address], [place] [address] March, [facility] [address] [id number] [address] [place] [address], [place] [address] March, [facility] [address] [id number] [address] [place] [address], [place] [address] March, [facility] [address] [id number] [address] [place] [address], [place] [address] Feb, [facility] [address] [id number] [address] [place] [address], [place] [address] Dec, [facility] [address] [id number] [address] [place] [address], [place] [address] Nov, [facility] [address] [id number] [address] [place] [address], [place] [address] Aug, [facility] [address] [id number] [address] [place] [address], [place] [address] Aug, [facility] [address] [id number] [address] [place] [address], [place] [address] Jun, [facility] [address] [id number] [address] [place] [address], [place] [address] Jun, [facility] [address] [id number] [address] [place] [address], [place] [address] Jun, [facility] [address] [id number] [address] [place] [address], [place] [address] Jun, [facility] [address] [id number] [address] [place] [address] Apr, [facility] [address] [facility] [id number] [address] [place] [address] Apr, [facility] [address] [facility] [id number] [address] [place] [address] Feb, [facility] [address] [facility] [id number] [address] [place] [address] Feb, IMMUNIZATIONS No Known Immunizations SOCIAL HISTORY [...]
--- OUTSIDE RECORDS SUMMARY | 2020-07-05 09:17 | XMS REPORT | Continuity of Care Document ---
Demographics Preferred Language Unknown Marital Status Unknown Protestant Affiliation Unknown Race Unknown Ethnic Group Unknown Author Organization Unknown Address Unknown Phone Unavailable Allergies Active Description Code Type Severity Reaction Onset Reported/Identified Relationship to Patient Clinical Status Yes NO KNOWN DRUG ALLERGIES UNKNOWN NO KNOWN DRUG ALLERG Yes No Known Drug Allergies [id number] Drug Allergy Unknown N/A 06/28/2020 Medications There is no data. Problems Date Dx Coded Attending Type Code Diagnosis Diagnosed By 10/22/1252 SARINA HOBBS DO Ot Z01.818 ENCOUNTER FOR OTHER PREPROCEDURAL EXAMIN 10/22/1252 SARINA HOBBS DO Ot Z11. 59 ENCOUNTER FOR SCREENING FOR OTHER VIRAL 10/22/1542 SARINA HOBBS DO Ot Z01.818 ENCOUNTER FOR OTHER PREPROCEDURAL EXAMIN 10/22/1542 SARINA HOBBS DO Ot Z11. 59 ENCOUNTER FOR SCREENING FOR OTHER VIRAL 03/01/2012 PHOEBE ROGERS APRN 55 3.9 HERNIA UNSPECIFIED SITE 03/01/2012 553.9 ISABELLE IA UNSPECIFIED SITE 03/01/2012 PHOEBE ROGERS APRN 55 3.9 HERNIA UNSPECIFIED SITE 03/01/2012 PHOEBE ROGERS APRN 55 3.9 HERNIA UNSPECIFIED SITE 03/01/2012 PHOEBE ROGERS APRN 55 3.9 HERNIA UNSPECIFIED SITE 03/01/2012 CASSI MENENDEZ [...] INGUINAL HERNIA WITHOUT OBSTRUCTION OR GANGRENE 05/03/2012 CASSI MENENDEZ DO 553.1 UMBILICAL HERNIA WITHOUT OBSTRUCTION OR GANGRENE [...] 10/12/2015 Ot V72.63 10/12/2015 Ot V74.8 10/31/2015 [employer] [facility], ALI FACP CCDS Ot I10 10/31/2015 [employer] [facility], ALI FACP CCDS Ot I48.2 10/31/2015 [facility] [employer] [facility], ALI FACP CCDS Ot I73.00 10/31/2015 [facility] [employer] [facility], ALI FACP CCDS Ot R94.31 11/08/2015 [facility] [employer] [facility], ALI FACP CCDS Ot I10 11/08/2015 [facility], ALI FACP CCDS Ot I48.2 11/08/2015 [facility], ALI FACP CCDS Ot I73.00 11/08/2015 [employer] [employer] [facility], ALI FACP CCDS Ot R94.31 03/23/2020 [facility], ALI FACP CCDS Ot I10 ESSENTIAL (PRIMARY) HYPERTENSION 03/23/2020 [facility], ALI FACP CCDS Ot I48.2 CHRONIC ATRIAL FIBRILLATION 03/23/2020 [facility], ALI FACP CCDS Ot 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 03/23/2020 [facility], ALI FACP CCDS Ot R94.31 ABNORMAL ELECTROCARDIOGRAM [ECG] [EKG] 03/23/2020 [facility], ALI FACP CCDS Ot I10 ESSENTIAL (PRIMARY) HYPERTENSION 03/23/2020 [facility], ALI FACP CCDS Ot I48.2 CHRONIC ATRIAL FIBRILLATION 03/23/2020 [facility], ALI FACP CCDS Ot 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 03/23/2020 [facility], ALI FACP CCDS Ot R94.31 ABNORMAL ELECTROCARDIOGRAM [ECG] [EKG] 03/28/2020 [facility], ALI FACP CCDS Ot I10 ESSENTIAL (PRIMARY) HYPERTENSION 03/28/2020 [facility], ALI FACP CCDS Ot I48.2 CHRONIC ATRIAL FIBRILLATION 03/28/2020 [facility], ALI FACP CCDS Ot 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 03/28/2020 [facility], ALI FACP CCDS Ot R94.31 ABNORMAL ELECTROCARDIOGRAM [ECG] [EKG] 03/28/2020 [facility], ALI FACP CCDS Ot I10 ESSENTIAL (PRIMARY) HYPERTENSION 03/28/2020 [facility], ALI FACP CCDS Ot I48.2 CHRONIC ATRIAL FIBRILLATION 03/28/2020 [facility], ALI FACP CCDS Ot 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 03/28/2020 [facility], ALI FACP CCDS Ot R94.31 ABNORMAL ELECTROCARDIOGRAM [ECG] [EKG] 03/28/2020 [facility], ALI FACP CCDS Ot I10 ESSENTIAL (PRIMARY) HYPERTENSION 03/28/2020 [facility], ALI FACP CCDS Ot I48.2 CHRONIC ATRIAL FIBRILLATION 03/28/2020 [facility], ALI FACP CCDS Ot 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 03/28/2020 [facility], ALI FACP CCDS Ot R94.31 ABNORMAL ELECTROCARDIOGRAM [ECG] [EKG] 03/28/2020 [facility], ALI FACP CCDS Ot I10 ESSENTIAL (PRIMARY) HYPERTENSION 03/28/2020 [facility], ALI FACP CCDS Ot I48.2 CHRONIC ATRIAL FIBRILLATION 03/28/2020 [facility], ALI FACP CCDS Ot 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 03/28/2020 [facility], ALI FACP CCDS Ot R94.31 ABNORMAL ELECTROCARDIOGRAM [ECG] [EKG] 03/30/2020 [facility], ALI FACP CCDS Ot I10 ESSENTIAL (PRIMARY) HYPERTENSION 03/30/2020 [facility], ALI FACP CCDS Ot I48.2 CHRONIC ATRIAL FIBRILLATION 03/30/2020 [facility], ALI FACP CCDS Ot 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 04/02/2020 [facility], ALI FACP CCDS Ot R94.31 ABNORMAL ELECTROCARDIOGRAM [ECG] [EKG] 04/02/2020 [facility], ALI FACP CCDS Ot I10 ESSENTIAL (PRIMARY) HYPERTENSION 04/02/2020 [facility], ALI FACP CCDS Ot I48.2 CHRONIC ATRIAL FIBRILLATION 04/02/2020 [facility], ALI FACP CCDS Ot 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 04/02/2020 [facility], ALI FACP CCDS Ot R94.31 ABNORMAL ELECTROCARDIOGRAM [ECG] [EKG] 04/03/2020 [facility], ALI FACP CCDS Ot I10 ESSENTIAL (PRIMARY) HYPERTENSION 04/03/2020 [facility], ALI FACP CCDS Ot I48.2 CHRONIC ATRIAL FIBRILLATION 04/03/2020 [facility], ALI FACP CCDS Ot 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 7 LEFT BUNDLE-BRANCH BLOCK, UNSPECIFIED 04/03/2020 [facility], SARINA D Ot I48. 20 CHRONIC ATRIAL FIBRILLATION, UNSPECIFIED 04/03/2020 [facility], SARINA D Ot Z79. 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 7 LEFT BUNDLE-BRANCH BLOCK, UNSPECIFIED 04/06/2020 [facility], SARINA D Ot I48. 20 CHRONIC ATRIAL FIBRILLATION, UNSPECIFIED 04/06/2020 [facility], SARINA D Ot Z79. 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 04/24/2020 [facility], MARIKA ADAMES CCDS Ot R94.31 ABNORMAL ELECTROCARDIOGRAM [ECG] [EKG] 04/24/2020 [facility] FACC, MARIKA MARTINOP CCDS Ot I10 ESSENTIAL (PRIMARY) HYPERTENSION 04/24/2020 [facility] Ot I48.2 CHRONIC ATRIAL FIBRILLATION 04/24/2020 [facility], ALI FACP CCDS Ot 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 04/24/2020 [facility], ALI FACP CCDS Ot R94.31 ABNORMAL ELECTROCARDIOGRAM [ECG] [EKG] 05/01/2020 [facility], ALI FACP CCDS Ot I10 ESSENTIAL (PRIMARY) HYPERTENSION 05/01/2020 [facility], [facility] Ot I48.2 CHRONIC ATRIAL FIBRILLATION 05/01/2020 [facility], [facility] CCD[facility] Ot 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 6 BENIGN NEOPLASM OF COLON, UNSPECIFIED 05/08/2020 SARINA HOBBS DO Ot I10 ESSENTIAL (PRIMARY) HYPERTENSION 05/08/2020 SARINA HOBBS DO Ot I44. 7 LEFT BUNDLE-BRANCH BLOCK, UNSPECIFIED 05/08/2020 SARINA HOBBS DO Ot I48. 91 UNSPECIFIED ATRIAL FIBRILLATION 05/08/2020 SARINA HOBBS DO Ot I73. 00 RAYNAUD'S SYNDROME WITHOUT GANGRENE 05/08/2020 SARINA HOBBS DO Ot Z79. 01 JAIL (CURRENT) USE OF ANTICOAGULANT 05/08/2020 SARINA HOBBS DO Ot Z79.899 OTHER FISCAL ANALYST (CURRENT) DRUG THERAPY 05/08/2020 SARINA HOBBS DO Ot Z86.010 PERSONAL HISTORY OF COLONIC POLYPS 05/08/2020 [facility] DO, SARINA D Ot Z87.891 PERSONAL HISTORY OF NICOTINE DEPENDENCE 05/08/2020 [facility], SARINA D Ot Z98. 52 VASECTOMY STATUS 05/10/2020 [facility], SARINA D Ot D12. 6 BENIGN NEOPLASM OF COLON, UNSPECIFIED 05/10/2020 [facility], SARINA D Ot I10 ESSENTIAL (PRIMARY) HYPERTENSION 05/10/2020 [facility], SARINA D Ot I44. 7 LEFT BUNDLE-BRANCH BLOCK, UNSPECIFIED 05/10/2020 [facility], SARINA D Ot I48. 91 UNSPECIFIED ATRIAL FIBRILLATION 05/10/2020 [facility], SARINA D Ot I73. 00 RAYNAUD'S SYNDROME WITHOUT GANGRENE 05/10/2020 [facility], SARINA D Ot Z79. 01 JAIL (CURRENT) USE OF ANTICOAGULANT 05/10/2020 [facility], SARINA D Ot Z79.899 OTHER JAIL (CURRENT) DRUG THERAPY 05/10/2020 [facility], SARINA D Ot Z86.010 PERSONAL HISTORY OF COLONIC POLYPS 05/10/2020 [facility], SARINA D Ot Z87.891 PERSONAL HISTORY OF NICOTINE DEPENDENCE 05/10/2020 [facility], SARINA D Ot Z98. 52 VASECTOMY STATUS 05/10/2020 [facility], SARINA D Ot D12. 6 BENIGN NEOPLASM OF COLON, UNSPECIFIED 05/10/2020 [facility], SARINA D Ot I10 ESSENTIAL (PRIMARY) HYPERTENSION 05/10/2020 [facility], SARINA D Ot I44. 7 LEFT BUNDLE-BRANCH BLOCK, UNSPECIFIED 05/10/2020 [facility] SARINA D Ot I48. 91 UNSPECIFIED ATRIAL FIBRILLATION 05/10/2020 [facility], SARINA D Ot I73. 00 RAYNAUD'S SYNDROME WITHOUT GANGRENE 05/10/2020 [facility], SARINA D Ot Z79. 01 FISCAL ANALYST (CURRENT) USE OF ANTICOAGULANT 05/10/2020 [facility], SARINA D Ot Z79.899 OTHER JAIL (CURRENT) DRUG THERAPY 05/10/2020 [facility], SARINA D Ot Z86.010 PERSONAL HISTORY OF COLONIC POLYPS 05/10/2020 [facility], SARINA D Ot Z87.891 PERSONAL HISTORY OF NICOTINE DEPENDENCE 05/10/2020 [facility], SARINA D Ot Z98. 52 VASECTOMY STATUS Procedures Code Description Performed By [place] [facility] [place] [address] MELLISA RODRIGUEZ VENIPUNCTURE 04/08/2013 76239 CBC 04/08/2013 07623 CMP 04/08/2013 59224 LIPI D PANEL 04/08/20131416539 GF R CALC (RESULT ONLY) 04/08/2013 07383 PSA FREE AND TOTAL 04/08/2013 40973 TEST OSTERONE PANEL (FREE, TOTAL, and SHBG) 04/08/2013 35361 TSH 04/08/2013 40303 UA L BRIGIDA DIP 11/08/2013 62886 BIOP SY SKIN LESION (SINGLE) 09/12/2014 68516 EXCI DUANE BENIGN LESION 2.1-3 cm (specify [...] Status Pt. Type Provider Facility Loc./Unit Complaint [id number] 11/19/2018 01:16:01 Document Registration [id number] 09/22/2014 12:41:00 09/22/2014 23:59: 59 CLS Outpatient CASSI MENENDEZ DO [id number] 09/12/2014 13:32:00 09/12/2014 23:59: 59 CLS Outpatient PHOEBE ROGERS APRN [id number] 11/08/2013 14:22:00 11/08/2013 23:59: 59 CLS Outpatient PHOEBE ROGERS APRN [id number] 04/08/2013 11:50:00 04/08/2013 23:59: 59 CLS Outpatient PHOEBE ROGERS APRN [id number] 06/23/2012 11:18:00 06/23/2012 23:59: 59 CLS Outpatient PHOEBE ROGERS APRN [id number] 06/23/2012 11:18:00 06/23/2012 23:59:5 9 CLS Outpatient [id number] 04/06/2013 15:53:00 Document Registration [id number] 03/05/2020 11:20:00 03/05/2020 23:59: 59 CLS Outpatient PHOEBE ROGERS APRN [facility] [id number] 03/05/2020 11:20:00 Document Registration [id number] 03/31/2018 09:20:00 Document Registration [id number] 06/28/2020 05:46:00 23:59:59 CLS Outpatient SARINA HOBBS DO [facility] PREOP HEPATIC FLEXURE TUBULAR ADENOMA [id number] 05/08/2020 07:47:00 10:37:00 DIS Outpatient SARINA HOBBS DO [facility] ENDO COLON POLYP [id number] 05/04/2020 09:21:00 12:53:00 DIS Outpatient SARINA HOBBS DO [facility] PREOP COLONOSCOPY [id number] 04/03/2020 08:22:00 11:35:00 DIS Outpatient SARINA HOBBS DO [facility] ENDO HX COLON POLYPS [id number] 03/30/2020 06:30:00 15:43:00 DIS Outpatient SARINA HOBBS DO [facility] PREOP COLONOSCOPY [id number] 10/23/2015 07:58:00 23:59:59 CLS Outpatient MARIKA JAVIER MD, FACC, FACP CC DS [facility] CARD ABD EKG,MATTHEW B [id number] 10/12/2015 08:11:00 015 23:59:59 CLS Outpatient MARIKA JAVIER MD, FACC, FACP CC DS [facility] CARD ABD EKG,MATTHEW B [id number] 07/05/2020 08:00:00 SARINA Christina DO HEPATIC FLEXURE TUBULAR ADENOMA [id number] 05/21/2012 05:45:00 Document Registration [id number] 05/18/2012 09:41:00 Document Registration [id number] 11/07/2016 10:05:00 Document Registration
[2020-07-05] MEDS ORDERED: ceFAZolin 2 GM IV Premixed 50 ML ONE (09:44)
[2020-07-05] MEDS ORDERED: metroNIDAZOLE 500MG/100ML IVPB 100 ML ONE (09:44)
[2020-07-05] MEDS: LACTATED RINGERS 1,000 ML IV PRN ×2 (09:45→13:32)
[2020-07-05 09:51] LABS: BASOPHILS % (AUTO) 1 % (0-10); EOSINOPHILS # (AUTO) 0.1 10^3/uL (0.0-0.3); EOSINOPHILS % (AUTO) 2 % (0-10); HEMATOCRIT 47 % (40-54); HEMOGLOBIN 16.2 G/DL (13.3-17.7); LYMPHOCYTES # (AUTO) 1.4 X 10^3 (1.0-4.0); LYMPHOCYTES % (AUTO) 24 % (12-44); MEAN CORPUSCULAR HEMOGLOBIN 29 PG (25-34); MEAN CORPUSCULAR HGB CONC 35 G/DL (32-36); MEAN CORPUSCULAR VOLUME 85 FL (80-99); MEAN PLATELET VOLUME 11.2 FL (7.4-10.4); MONOCYTES # (AUTO) 0.8 X 10^3 (0.0-1.0); MONOCYTES % (AUTO) 14 % (0-12); NEUTROPHILS # (AUTO) 3.4 X 10^3 (1.8-7.8); NEUTROPHILS % (AUTO) 59 % (42-75); PLATELET COUNT 165 10^3/uL (130-400); RED CELL DISTRIBUTION WIDTH 13.1 % (10.0-14.5); WHITE BLOOD COUNT 5.7 10^3/uL (4.3-11.0)
[2020-07-05] MEDS ORDERED: metroNIDAZOLE 500MG/100ML IVPB 100 ML IV ONE (10:00)
[2020-07-05] MEDS ORDERED: ceFAZolin 2 GM IV Premixed 50 ML IV ONE (10:00)
[2020-07-05] MEDS ORDERED: GLYCOPYRROLATE 0.2 MG/ML (ROBINUL) 2 ML VIAL ONE (11:42)
[2020-07-05] MEDS ORDERED: LIDOCAINE PF 2% 5 ML (XYLOCAINE) VIAL ONE (11:42)
[2020-07-05] MEDS ORDERED: NEOSTIGMINE 3 MG/3 ML VIAL ONE (11:42)
[2020-07-05] MEDS ORDERED: ONDANSETRON 4 MG/2 ML (SDV) Z0FRAN ONE (11:42)
[2020-07-05] MEDS ORDERED: ROCURONIUM 10 MG/ML 5 ML SYRINGE IV ONE (11:42)
[2020-07-05] MEDS ORDERED: proPOfol 200 MG/20 ML (DIPRIVAN) VIAL IV ONE (11:42)
[2020-07-05] MEDS ORDERED: fentaNYL INJECTION 100 MCG/2 ML AMP ONE (11:42)
[2020-07-05] MEDS ORDERED: MIDAZOLAM 2 MG/2 ML (VERSED) VIAL ONE (11:42)
[2020-07-05] MEDS ORDERED: SEVOFLURANE (ULTANE) 15 ML INHAL SOLN ONE (11:42)
[2020-07-05] MEDS ORDERED: BUP/EPI 0.5% 1:200,000 (MARCAINE) 10ML VIAL IJ ONE (12:45)
[2020-07-05] MEDS ORDERED: HYDROmorphone 2 MG/ML VIAL (DILAUDID) ONE (14:33)
[2020-07-05] MEDS ORDERED: PHENYLEPHRINE 100 MCG/ML 10 ML (ANESTHESIA) SYR ONE (14:36)
[2020-07-05] MEDS ORDERED: ONDANSETRON 4 MG/2 ML (SDV) Z0FRAN IVP PRN (14:45)
[2020-07-05] MEDS ORDERED: morphine INJ 10 MG/ML 1ML (SYR OR VIAL) IVP ONE (14:45)
[2020-07-05] MEDS ORDERED: HYDROmorphone 2 MG/ML VIAL (DILAUDID) IV ONE (14:45)
--- NOTE | 2020-07-05 14:50 | Progress Note-Post Operative ---
Post-Operative Progess Note Surgeon (s)/Waxing Machine Operator (s) Surgeon SARINA HOBBS DO Waxing Machine Operator: Dr. Thompson Pre-Operative Diagnosis tubular adenoma right colon polyp Post-Operative Diagnosis same Procedure & Operative Findings Date of Procedure 07/05/20 Procedure Performed/Findings lap hand assisted right colon resection Anesthesia Type general Estimated Blood Loss Estimated blood loss (mL): min Specimens/Packing Specimens Removed right colon SARINA HOBBS DO Jul 05, 2020 14:50
--- NOTE | 2020-07-05 14:52 | Physical Therapy Progress Note ---
Therapy Progress Note Order received for PT evaluation. Patient had abdominal surgery that ended at 1425. He is currently in recovery. Will attempt PT eval tomorrow. TERESA CLAIRE PT Jul 05, 2020 14:51
[2020-07-05] MEDS ORDERED: LABETALOL HCL 20 MG/4 ML VIAL ONE (14:56)
[2020-07-05] MEDS ORDERED: NS 100 ML (IVPB) BAG IV ONE (15:00)
--- NOTE | 2020-07-05 16:00 | NUR ---
RECEIVED FROM [facility] OP COLON RESECTION, REPORT FROM CLEOPATRA ORONA RN, PATIENT ALERT, DENIES PAIN, CALL LIGHT WITHIN REACH, IV SITE WITHOUT REDNESS OR SWELLING, LR INFUSING, REAVES PATENT WITH CLEAR YELLOW URINE, DRESSING DRY AND INTACT TO ABD, INSTRUCTED ON NPO EXCEPT ICE CHIPS, ON ROOM AIR, O2 SAT 97 PERCENT. FAMILY AT BEDSIDE,
--- NOTE | 2020-07-05 16:20 | NUR ---
REPORT TO MIGUEL KIM TO ASSUME NURSING CARE
[2020-07-05] MEDS: NS IV 1000 ML 1,000 ML IV SCH (16:48)
[2020-07-05] MEDS ORDERED: RT-ALBUTEROL SULF 2.5 MG/3 ML PRE-MIX VIAL INH PRN (17:00)
--- NOTE | 2020-07-05 17:54 | NUR ---
DR BECERRIL NOTIFIED OF CONSULT
[2020-07-05] MEDS: metroNIDAZOLE 500MG/100ML IVPB 100 ML IV SCH (19:27)
[2020-07-05] MEDS: ceFAZolin INJECTION 1,000 MG in WATER (STERILE) FOR INJECTION 10 ML IV SCH (19:27)
--- NOTE | 2020-07-05 20:45 | Consultation - Hospitalist ---
HPI History of Present Illness: HPI/Chief Complaint CC: Colon Polyp HPI: This is a 64yoWM that is s/p hepatic flexure adenoma resection and sister is at the bedside. He denies any current pain or nausea. Reviewed home meds and checked labs and images and conferred with RN. Source: patient, RN/MD Exam Limitations: no limitations Date Seen 07/05/20 Attending Physician Jason Carroll DO PCP Isaac Keller MD Referring Physician Date of Admission Jul 05, 2020 at 09:00 Home Medications & Allergies Home Medications Reviewed patient Home Medication Reconciliation performed by pharmacy medication reconciliations roadway technician and/or nursing. Patients Allergies have been reviewed. Allergies Allergies Coded Allergies No Known Drug Allergies (Verified06/28/20) Past Rhxbeeh-Hrrbsx-Lpkdfe Hx Past Med/Social Hx: Reviewed Nursing Past Med/Soc Hx, Reviewed and Corrections made Patient Social History Marrital Status: single Employed/Student: [place] Alcohol Use: Rarely Uses Number of Drinks Today: 0 Recreational Drug Use: Yes (NONE FOR 25 YRS) Smoking Status: Former Smoker Former Smoker, Quit: Aug 05, 1995 Type Used: Cigarettes 2nd Hand Smoke Exposure: Yes Physical Abuse Screen: No Sexual Abuse: No Recent Foreign Travel: No Contact w/other who traveled: No Recent Hopitalizations: No Recent Infectious Disease Expo: No Seasonal Allergies Seasonal Allergies: No Past Medical History Surgeries: Vasectomy Cardiac: Atrial Fibrillation, Hypertension Reproductive: No Sexually Transmitted Disease: No Gastrointestinal: Polyps History of Blood Disorders: No Adverse Reaction to Blood Nunez: No (N/A) Review of Systems Constitutional: see HPI EENTM: see HPI Respiratory: see HPI Cardiovascular: see HPI Gastrointestinal: see HPI, abdominal pain, nausea Genitourinary: see HPI Musculoskeletal: see HPI Skin: see HPI Psychiatric/Neurological: See HPI Physical Exam Physical Exam Vital Signs Vital Signs - First Documented 07/05/20 07/05/20 09:20 16:53 Temp 36.1 Pulse 69 Resp 18 B/P (MAP) 147/97 (114) Pulse Ox 98 O2 Delivery Room Air FiO2 21 Capillary Refill : Less Than 3 Seconds Height, Weight, BMI Height: 0'72.00" Weight: 156lbs. oz. 70.390116jg; 21.67 BMI Method: General Appearance: No Apparent Distress, WD/WN Eyes: Bilateral Eye Normal Inspection, Bilateral Eye PERRL HEENT: PERRL/EOMI, TMs Normal, Normal ENT Inspection, Pharynx Normal Neck: Full Range of Motion, Normal Inspection, Non Tender, Supple, Carotid Bruit Respiratory: Chest Non Tender, Lungs Clear, Normal Breath Sounds, No Accessory Muscle Use, No Respiratory Distress Cardiovascular: Regular Rate, Rhythm, No Edema, No Gallop, No JVD, No Murmur, Normal Peripheral Pulses Gastrointestinal: Normal Bowel Sounds, No Organomegaly, No Pulsatile Mass, Tenderness Back: Normal Inspection, No CVA Tenderness, No Vertebral Tenderness Extremity: Normal Capillary Refill, Normal Inspection, Normal Range of Motion, Non Tender, No Calf Tenderness, No Pedal Edema Neurologic/Psychiatric: Alert, Oriented x3, No Motor/Sensory Deficits, Normal Mood/Affect Skin: Normal Color, Warm/Dry Lymphatic: No Adenopathy Results Results/Procedures Labs Laboratory Tests 07/05/20 09:30 07/06/20 05:00 Patient resulted labs reviewed. Assessment/Plan Assessment and Plan Assess & Plan/Chief Complaint Assessment: Colon polyp Anemia Abdominal Pain Plan: Check labs in morning Monitor closely Pain control Diagnosis/Problems Diagnosis/Problems (1) Hypertension (2) HEPATIC FLEXURE TUBULAR ADENOMA Clinical Quality Measures DVT/VTE Risk/Contraindication: Risk Factor Score Per Nursin RFS Level Per Nursing on Admit: 4+=Very High KIMBERLY BECERRIL DO Jul 05, 2020 20:45
[2020-07-05] MEDS: morphine INJ 4 MG/ML 1 ML (VIAL/SYRINGE) IVP PRN (21:23)
[2020-07-05] MEDS: RT-ALBUTEROL SULF 2.5 MG/3 ML PRE-MIX VIAL INH SCH (22:35)
[2020-07-06] VITALS: BP 129/77
[2020-07-06] MEDS: NS IV 1000 ML 1,000 ML IV SCH ×3 (01:25→18:00)
[2020-07-06 04:00] VITALS: BP 125/67
[2020-07-06] MEDS: morphine INJ 4 MG/ML 1 ML (VIAL/SYRINGE) IVP PRN (04:14)
[2020-07-06] MEDS: metroNIDAZOLE 500MG/100ML IVPB 100 ML IV SCH (04:17)
[2020-07-06] MEDS: ceFAZolin INJECTION 1,000 MG in WATER (STERILE) FOR INJECTION 10 ML IV SCH (04:17)
[2020-07-06 05:34] LABS: BASOPHILS % (AUTO) 0 % (0-10); EOSINOPHILS % (AUTO) 0 % (0-10); HEMATOCRIT 42 % (40-54); HEMOGLOBIN 14.6 G/DL (13.3-17.7); LYMPHOCYTES # (AUTO) 0.7 X 10^3 (1.0-4.0); LYMPHOCYTES % (AUTO) 5 % (12-44); MEAN CORPUSCULAR HEMOGLOBIN 30 PG (25-34); MEAN CORPUSCULAR HGB CONC 35 G/DL (32-36); MEAN CORPUSCULAR VOLUME 85 FL (80-99); MEAN PLATELET VOLUME 11.1 FL (7.4-10.4); MONOCYTES # (AUTO) 1.7 X 10^3 (0.0-1.0); MONOCYTES % (AUTO) 11 % (0-12); NEUTROPHILS # (AUTO) 12.2 X 10^3 (1.8-7.8); NEUTROPHILS % (AUTO) 84 % (42-75); PLATELET COUNT 181 10^3/uL (130-400); RED CELL DISTRIBUTION WIDTH 13.3 % (10.0-14.5); WHITE BLOOD COUNT 14.6 10^3/uL (4.3-11.0)
[2020-07-06 05:48] LABS: ALANINE AMINOTRANSFERASE 12 U/L (0-55); ALBUMIN 3.9 GM/DL (3.2-4.5); ALKALINE PHOSPHATASE 49 U/L (40-136); BILIRUBIN,TOTAL 0.7 MG/DL (0.1-1.0); BUN/CREATININE RATIO 14; CALCIUM 8.5 MG/DL (8.5-10.1); CARBON DIOXIDE 21 MMOL/L (21-32); CHLORIDE 106 MMOL/L (98-107); CREATININE SERUM 1.15 MG/DL (0.60-1.30); GFR ESTIMATED > 60; GLUCOSE 147 MG/DL (70-105); POTASSIUM 4.5 MMOL/L (3.6-5.0); SODIUM 138 MMOL/L (135-145); TOTAL PROTEIN 6.5 GM/DL (6.4-8.2)
[2020-07-06 06:20] LABS: ANISOCYTOSIS SLIGHT; HYPOCHROMASIA SLIGHT; LYMPHOCYTES % (MANUAL) 4 %; MICROCYTOSIS SLIGHT; MONOCYTES % (MANUAL) 11 %; NEUTROPHILS % (MANUAL) 85 %; REACTIVE LYMPHOCYTES 1 %
--- NOTE | 2020-07-06 06:45 | OPERATIVE REPORT ---
DATE OF SERVICE: 07/05/2020 PREOPERATIVE DIAGNOSIS: Tubular adenoma, right colon polyp. POSTOPERATIVE DIAGNOSIS: Tubular adenoma, right colon polyp. PROCEDURE PERFORMED: Laparoscopic hand-assisted right colon resection. SURGEON: Sarina Carroll DO. ECOLOGICAL ECONOMIST: Dr. Thompson, assisted in retraction, dissection and closure. ANESTHESIA: General. ESTIMATED BLOOD LOSS: Minimal. COMPLICATIONS: None. SPECIMENS: Right colon. INDICATIONS FOR PROCEDURE: The patient is a 64-year-old male with a right colon polyp, which was found to be tubular adenoma, but unable to be resected due to location and visualization. He had two scopes in attempting to try to have this removed and it was unsuccessful. This area was tattooed and the patient wished to proceed with surgical resection. He understands all risks and benefits and wishes to proceed. Consent was signed in the chart. DESCRIPTION OF PROCEDURE: The patient was taken to the operating suite and was prepped and draped in a sterile fashion. Surgical pause was performed. A midline incision was made just around the umbilicus for hand port. Under direct visualization, a 5 mm trocar was placed in the subxiphoid region and the abdomen was then insufflated with the Gelport in place. A 5 mm trocar was placed in the suprapubic region. There were some adhesions of the omentum that were taken down that were down to the right pelvis where a previous hernia repair was performed. The right colon was then mobilized along the white line of [place], taking down the hepatic flexure. Once the right colon was mobilized, it was brought out through the midline incision. A mkcp-bm-kpyp anastomosis in a [place] two-step fashion was used to do a rprv-pp-gtxb anastomosis after the colon was dissected around and the small bowel was dissected around. Once the anastomosis was created, a cross stitch was placed and a LigaSure was then used to divide the mesentery from the colon and the specimen was removed. The abdomen was then irrigated with copious amounts of irrigation. Hemostasis was achieved. The midline incision was then closed using 1-0 Prolene in a running fashion. The trocars were removed. The abdomen was reinspected with the laparoscope after the hand port was closed. No other pathology noted. The abdomen was then desufflated and the trocars were removed. The wound was then irrigated with copious amounts of irrigation and skin was closed with jayson. The area was washed and dried and sterile bandages were applied. The patient tolerated procedure well without any complications and was taken to recovery room in stable condition. Job ID: [id number] DocumentID: [id number] Dictated Date: 07/05/2020 20:44:41 Bulk Picker Date: 07/06/2020 06:44:18 Dictated By: SARINA CARROLL DO
[2020-07-06 08:09] VITALS: BP 136/76
--- NOTE | 2020-07-06 09:43 | Physical Therapy Evaluation ---
PT Evaluation-General Medical Diagnosis Admission Date Jul 05, 2020 at 09:00 Medical Diagnosis: Hepatic flexure tubular adenoma Onset Date: Jul 05, 2020 Therapy Diagnosis Therapy Diagnosis: debility Height/Weight Height (Feet): 0 Height (Inches): 72.00 Weight (Pounds): 156 Precautions Precautions/Isolations: Standard Precautions Referral Physician: Carly Medical History Pertinent Medical History: Atrial Fib, HTN Current History s/p right colon resection Reviewed History: Yes Social History Home: Single Level Current Living Status: Spouse Prior Prior Level of Function SCALE: Activities may be completed with or without assistive devices. 4-Tvjruazyhb-zkbsnif completes the activity by him/herself with no assistance from a helper. 5-Set-up or Clean-up Assistance-helper sets up or cleans up; patient completes activity. [place] assists only prior to or following the activity. 4-Supervision or Touching Assistance-helper provides verbal cues and/or touching/steadying and/or contact guard assistance as patient completes activity. Assistance may be provided throughout the activity or intermittently. 3-Partial/Moderate Assistance-helper does LESS THAN HALF the effort. [place] lifts, holds or supports trunk or limbs, but provides less than half the effort. 2-Substantial/Maximal Assistance-helper does MORE THAN HALF the effort. [place] lifts or holds trunk or limbs and provides more than half the effort. 5-Buogozhuv-loqgka does ALL the effort. Patient does none of the effort to complete the activity. Or, the assistance of 2 or more helpers is required for the patient to complete the activity. If activity was not attempted, code reason: 7-Patient Refused. 9-Not Applicable-not attempted and the patient did not perform the activity before the current illness, exacerbation or injury. 10-Not Attempted due to Environmental Limitations-(lack of equipment, weather restraints, etc.). 88-Not Attempted due to Medical Conditions or Safety Concerns. Bed Mobility: 6 Transfers (B,C,W/C): 6 Gait: 6 Stairs: 6 Indoor Mobility (Ambulation): Independent Stairs: Independent Prior Devices Use: None king PT Evaluation-Current Subjective Patient is very agreeable to participate with therapy. Objective Patient Orientation: Normal For Age Attachments: IV ROM/Strength ROM Lower Extremities bilateral LE WFL Strength Lower Extremities 5/5 bilateral LE Integumentary/Posture Integumentary refer to nursing notes Bowel Incontinence: No Bladder Incontinence: No Posture WFL Neuromuscular (Tone, Coordination, Reflexes) grossly intact Sensory Vision: Wears Glasses Hearing: Functional Sensation Right Lower Extremit: Intact Sensation Left Lower Extremity: Intact Transfers Roll Left to Right (QC): 6 Sit to Lying (QC): 6 Lying to Sitting/Side of Bed(Q: 6 Sit to Stand (QC): 6 Chair/N[employer]-jw-Sgszt Xfer(QC): 6 Gait Does the Patient Walk?: Yes Mode of Locomotion: Walk Anticipated Mode of Locomotion: Walk Walk 10 feet (QC): 6 Walk 50 ft with 2 Turns(QC): 6 Walk 150 ft (QC): 6 Distance: 800' Gait Assistive Device: None Comments/Gait Description safe and functional Balance Sitting Static: Normal Sitting Dynamic: Normal Standing Static: Normal Standing Dynamic: Normal Assessment/Needs 64 y.o. male, is currently at [facility] and has been instructed to ambulate PRN in hallway. Nursing notified. No skilled therapy indicated. Rehab Potential: Fair PT Plan Treatment/Plan Treatment Plan: Discontinue PT, goals met Treatment Duration: Jul 06, 2020 Frequency: 1 time per week Estimated Hrs Per Day: .25 hour per day Patient and/or Family Agrees t: Yes Time/GCodes Time In: 824 Time Out: 835 Total Billed Treatment Time: 11 Total Billed Treatment 1 visit EVLow 11 min TEODORA PHILLIPS PT Jul 06, 2020 09:43
[2020-07-06] MEDS: RT-ALBUTEROL SULF 2.5 MG/3 ML PRE-MIX VIAL INH SCH ×2 (10:39→18:53)
--- NOTE | 2020-07-06 10:56 | Anesthesia-General Post-Op ---
General Patient Condition Mental Status/LOC: Same as Preop Cardiovascular: Satisfactory Nausea/Vomiting: Absent Respiratory: Satisfactory Pain: Controlled Complications: Absent Post Op Complications Complications None Follow Up Care/Instructions Patient Instructions None needed. Anesthesia/Patient Condition Patient Condition Patient is doing well, C/O abd pain which is controlled and expected, stable vital signs, no apparent adverse anesthesia problems. JESSA KERR DO Jul 06, 2020 10:56
--- NOTE | 2020-07-06 11:08 | Progress Note - Hospitalist ---
Subjective HPI/CC On Admission Date Seen by Provider: Jul 06, 2020 Time Seen by Provider: 10:00 Subjective/Events-last exam Pt doing very well On a clear liquid diet now WBC 14,000 Rest of labs stable No nausea Review of Systems General: Fatigue, Malaise Gastrointestinal: Abdominal Pain Neurological: Weakness Objective Exam Vital Signs Vital Signs Date Time Temp Pulse Resp B/P (MAP) Pulse Ox O2 Delivery O2 Flow Rate FiO2 07/06/20 19:52 37.3 78 16 124/60 (81) 93 Room Air 07/05/20 16:53 21 07/05/20 15:00 4 Capillary Refill : Less Than 3 SecondsLess Than 3 Seconds General Appearance: No Apparent Distress, WD/WN HEENT: PERRL/EOMI, TMs Normal, Normal ENT Inspection, Pharynx Normal, Moist Mucous Membranes Neck: Full Range of Motion, Normal Inspection, Non Tender, Supple, Carotid Bruit Respiratory: Chest Non Tender, Lungs Clear, Normal Breath Sounds, No Accessory Muscle Use, No Respiratory Distress Cardiovascular: Regular Rate, Rhythm, No Edema, No Gallop, No JVD, No Murmur, Normal Peripheral Pulses Gastrointestinal: Normal Bowel Sounds, No Organomegaly, No Pulsatile Mass, Tenderness Back: Normal Inspection, No CVA Tenderness, No Vertebral Tenderness Extremity: Normal Capillary Refill, Normal Inspection, Normal Range of Motion, Non Tender, No Calf Tenderness, No Pedal Edema Neurologic/Psychiatric: Alert, Oriented x3, No Motor/Sensory Deficits, Normal Mood/Affect Skin: Normal Color, Warm/Dry Lymphatic: No Adenopathy Results/Procedures Lab Laboratory Tests 07/06/20 05:00 Patient resulted labs reviewed. Assessment/Plan Assessment and Plan Assess & Plan/Chief Complaint Assessment: Colon polyp Anemia Abdominal Pain Plan: Check labs in morning Monitor closely Pain control 07/06/20: Monitor white blood cell count Rest of labs stable Clear liquid diet Clinical Quality Measures DVT/VTE Risk/Contraindication: Risk Factor Score Per Nursin RFS Level Per Nursing on Admit: 4+=Very High KIMBERLY BECERRIL DO Jul 06, 2020 11:08
[2020-07-06 11:32] VITALS: BP 144/80
[2020-07-06] MEDS: HYDROcodone/APAP 5 MG/325 MG (LORTAB) TAB PO PRN ×2 (14:14→22:09)
[2020-07-06 16:12] VITALS: BP 146/79
--- NOTE | 2020-07-06 16:30 | Progress Note - Surgery ---
JUSTINHA MED STUDENT 07/06/20 1630: Subjective Date Seen by a Provider: Jul 06, 2020 Time Seen by a Provider: 07:50 Subjective/Events-last exam Pt appeared comfortable but in mild abdominal pain. Pain is 8/10. Describes his pain as a ache and soreness. Denies any flatulence at this time. Is not doing well with IS currently. Denies n/v, fever, chills, chest pain, sob. Objective Exam Vital Signs Date Time Temp Pulse Resp B/P (MAP) Pulse Ox O2 Delivery O2 Flow Rate FiO2 07/06/20 16:12 37.0 72 16 146/79 (101) 96 Room Air 07/06/20 14:45 36.8 07/06/20 14:14 36.8 07/06/20 11:32 36.8 87 18 144/80 (101) 96 Room Air 07/06/20 10:39 95 Room Air 07/06/20 09:06 Room Air 07/06/20 08:09 36.8 88 18 136/76 (96) 96 Room Air 07/06/20 04:00 38.1 78 20 125/67 (86) 95 Room Air 07/06/20 00:00 37.6 90 18 129/77 (94) 96 Room Air 07/05/20 22:45 96 Room Air 07/05/20 20:00 Room Air 07/05/20 19:21 36.4 87 18 152/84 (106) 95 Room Air 07/05/20 18:36 93 Room Air 07/05/20 17:32 77 155/91 (112) 96 Room Air 07/05/20 17:32 76 140/91 (107) 95 Room Air 07/05/20 17:01 65 147/88 (107) 94 Room Air 07/05/20 16:53 96 Room Air 07/05/20 16:53 36.1 79 96 21 I & O 07/06/20 07:00 Intake Total 2370 ml Output Total 900 ml Balance 1470 ml Capillary Refill : Less Than 3 SecondsLess Than 3 Seconds General Appearance: No Apparent Distress, WD/WN HEENT: PERRL/EOMI, TMs Normal, Normal ENT Inspection, Pharynx Normal, Moist Mucous Membranes Neck: Full Range of Motion, Normal Inspection, Non Tender, Supple, Carotid Bruit Respiratory: Chest Non Tender, Lungs Clear, Normal Breath Sounds, No Accessory Muscle Use, No Respiratory Distress Cardiovascular: Regular Rate, Rhythm, No Edema, No Gallop, No JVD, No Murmur, Normal Peripheral Pulses Gastrointestinal: soft, tenderness Extremity: Normal Capillary Refill, Normal Inspection, Normal Range of Motion, Non Tender, No Calf Tenderness, No Pedal Edema Neurologic/Psychiatric: Alert, Oriented x3, No Motor/Sensory Deficits, Normal Mood/Affect Skin: Normal Color, Warm/Dry Lymphatic: No Adenopathy Results Lab Laboratory Tests 07/06/20 05:00: White Blood Count 14.6H, Red Blood Count 4.93, Hemoglobin 14.6, Hematocrit 42, Mean Corpuscular Volume 85, Mean Corpuscular Hemoglobin 30, Mean Corpuscular Hemoglobin Concent 35, Red Cell Distribution Width 13.3, Platelet Count 181, Mean Platelet Volume 11.1H, Neutrophils (%) (Auto) 84H, Lymphocytes (%) (Auto) 5L, Monocytes (%) (Auto) 11, Eosinophils (%) (Auto) 0, Basophils (%) (Auto) 0, Neutrophils # (Auto) 12.2H, Lymphocytes # (Auto) 0.7L, Monocytes # (Auto) 1.7H, Eosinophils # (Auto) 0.0, Basophils # (Auto) 0.0, Neutrophils % (Manual) 85, Lymphocytes % (Manual) 4, Monocytes % (Manual) 11, Reactive Lymphocytes 1, Hypochromasia SLIGHT, Anisocytosis SLIGHT, Microcytosis SLIGHT, Sodium Level 138, Potassium Level 4.5, Chloride Level 106, Carbon Dioxide Level 21, Anion Gap 11, Blood Urea Nitrogen 16, Creatinine 1.15, Estimat Glomerular Filtration Rate > 60, BUN/Creatinine Ratio 14, Glucose Level 147H, Calcium Level 8.5, Corrected Calcium 8.6, Total Bilirubin 0.7, Aspartate Amino Transf (AST/SGOT) 15, Alanine Aminotransferase (ALT/SGPT) 12, Alkaline Phosphatase 49, Total Protein 6.5, Albumin 3.9 Microbiology 07/05/20 MRSA Screen - Final, Complete MRSA not isolated Assessment/Plan Assessment/Plan Assessment/Plan bowel resection manage pain increase activity and diet work on IS await bowel function Clinical Quality Measures DVT/VTE Risk/Contraindication: Risk Factor Score Per Nursin RFS Level Per Nursing on Admit: 4+=Very High SARINA CARROLL DO 07/07/20 1119: Subjective Subjective/Events-last exam Pain controlled. Gets up to and 8/10 when doesn't take pain medication. No bowel function. Not using IS. Denies n/v fever sweats chills shortness of breath or chest pain. Objective Exam General Appearance: No Apparent Distress HEENT: PERRL/EOMI Neck: Normal Inspection, Non Tender Respiratory: Chest Non Tender, No Accessory Muscle Use, No Respiratory Distress Cardiovascular: Regular Rate, Rhythm Gastrointestinal: tenderness (incisional, incision c/d/i) Neurologic/Psychiatric: Alert, Oriented x3, No Motor/Sensory Deficits, Normal Mood/Affect Skin: Normal Color, Warm/Dry Lymphatic: No Adenopathy Assessment/Plan Assessment/Plan Assessment/Plan s/p right colon resection pain control IS DC acuna ambulate await bowel function scd's/lovenox for dvt prophylaxis Supervisory-Addendum Brief Verification & Attestation Participated in pt care: history, MDM, physical Personally performed: exam, history, MDM, supervision of care Care discussed with: Medical Student Procedures: n/a Results interpretation: Verified all documentation Verification and Attestation of Medical Student E/M Service A medical student performed and documented this service in my presence. I reviewed and verified all information documented by the medical student and made modifications to such information, when appropriate. I personally performed the physical exam and medical decision making. Sarina Carroll, Jul 06, 2020,18:19 HA ANDERSON MED STUDENT Jul 06, 2020 16:30 SARINA CARROLL DO Jul 07, 2020 11:19
[2020-07-06 19:52] VITALS: BP 124/60
[2020-07-07] VITALS (7 sets, daily range): BP systolic 129–182; BP diastolic 77–92
[2020-07-07] MEDS: NS IV 1000 ML 1,000 ML IV SCH ×3 (02:01→17:51)
[2020-07-07] MEDS: HYDROcodone/APAP 5 MG/325 MG (LORTAB) TAB PO PRN ×2 (04:59→11:23)
[2020-07-07 06:17] LABS: BASOPHILS % (AUTO) 0 % (0-10); EOSINOPHILS % (AUTO) 0 % (0-10); HEMATOCRIT 36 % (40-54); LYMPHOCYTES # (AUTO) 1.3 X 10^3 (1.0-4.0); LYMPHOCYTES % (AUTO) 13 % (12-44); MEAN CORPUSCULAR HEMOGLOBIN 30 PG (25-34); MEAN CORPUSCULAR HGB CONC 34 G/DL (32-36); MEAN CORPUSCULAR VOLUME 87 FL (80-99); MEAN PLATELET VOLUME 11.4 FL (7.4-10.4); MONOCYTES # (AUTO) 1.3 X 10^3 (0.0-1.0); MONOCYTES % (AUTO) 12 % (0-12); NEUTROPHILS # (AUTO) 7.5 X 10^3 (1.8-7.8); NEUTROPHILS % (AUTO) 74 % (42-75); PLATELET COUNT 125 10^3/uL (130-400); RED CELL DISTRIBUTION WIDTH 13.2 % (10.0-14.5); WHITE BLOOD COUNT 10.1 10^3/uL (4.3-11.0)
[2020-07-07 06:35] LABS: ALBUMIN 3.3 GM/DL (3.2-4.5); CHLORIDE 108 MMOL/L (98-107); POTASSIUM 4.3 MMOL/L (3.6-5.0); SODIUM 138 MMOL/L (135-145)
[2020-07-07 06:38] LABS: GLUCOSE 94 MG/DL (70-105); TOTAL PROTEIN 5.6 GM/DL (6.4-8.2)
[2020-07-07 06:39] LABS: CARBON DIOXIDE 26 MMOL/L (21-32)
[2020-07-07 06:40] LABS: BILIRUBIN,TOTAL 0.9 MG/DL (0.1-1.0)
[2020-07-07 06:41] LABS: ALKALINE PHOSPHATASE 41 U/L (40-136); CREATININE SERUM 0.82 MG/DL (0.60-1.30); GFR ESTIMATED > 60
--- NOTE | 2020-07-07 06:41 | Progress Note - Hospitalist ---
Subjective HPI/CC On Admission Date Seen by Provider: Jul 07, 2020 Time Seen by Provider: 11:00 CC: Colon Polyp HPI: This is a 64yoWM that is s/p hepatic flexure adenoma resection and sister is at the bedside. He denies any current pain or nausea. Reviewed home meds and checked labs and images and conferred with RN. Subjective/Events-last exam Labs now normal including wbc Pain controlled Ambulating + flatus no BM CLD tolerated Review of Systems Gastrointestinal: Abdominal Pain Objective Exam Vital Signs Vital Signs Date Time Temp Pulse Resp B/P (MAP) Pulse Ox O2 Delivery O2 Flow Rate FiO2 07/07/20 16:00 36.9 76 16 137/92 (107) 96 07/07/20 11:36 Room Air 07/05/20 16:53 21 07/05/20 15:00 4 Capillary Refill : Less Than 3 SecondsLess Than 3 Seconds General Appearance: No Apparent Distress, WD/WN Respiratory: Chest Non Tender, Lungs Clear, Normal Breath Sounds, No Accessory Muscle Use, No Respiratory Distress Cardiovascular: Regular Rate, Rhythm, No Edema, No Gallop, No JVD, No Murmur, Normal Peripheral Pulses Neurologic/Psychiatric: Alert, Oriented x3, No Motor/Sensory Deficits, Normal Mood/Affect Results/Procedures Lab Laboratory Tests 07/07/20 05:30 Patient resulted labs reviewed. Assessment/Plan Assessment and Plan Assess & Plan/Chief Complaint Assessment: Colon polyp Anemia Abdominal Pain Post op ileus Plan: Check labs in morning Monitor closely Pain control 07/06/20: Monitor white blood cell count Rest of labs stable Clear liquid diet 07/07/20: Ambulate Ileus management Diagnosis/Problems Diagnosis/Problems (1) Hypertension (2) HEPATIC FLEXURE TUBULAR ADENOMA Clinical Quality Measures DVT/VTE Risk/Contraindication: Risk Factor Score Per Nursin RFS Level Per Nursing on Admit: 4+=Very High KIMBERLY BECERRIL DO Jul 07, 2020 06:41
[2020-07-07 06:42] LABS: BUN/CREATININE RATIO 12
[2020-07-07 06:44] LABS: ALANINE AMINOTRANSFERASE 9 U/L (0-55)
[2020-07-07] MEDS: RT-ALBUTEROL SULF 2.5 MG/3 ML PRE-MIX VIAL INH SCH ×2 (09:48→20:32)
--- NOTE | 2020-07-07 13:58 | Progress Note - Surgery ---
VIKTORIA MURGUIA MED STUDENT 07/07/20 1358: Subjective Date Seen by a Provider: Jul 07, 2020 Time Seen by a Provider: 08:01 Subjective/Events-last exam Patient states he has been walking every 2 hours with mild soreness afterwards but no complaints otherwise. He states he has been on clear liquids and has urinated. Pain surrounding incision is adequately managed by medication. Denies CP, tachycardia, SOB, wheezing, nausea, vomiting. Objective Exam Vital Signs Date Time Temp Pulse Resp B/P (MAP) Pulse Ox O2 Delivery O2 Flow Rate FiO2 07/07/20 11:36 36.4 62 15 182/84 (116) 96 Room Air 07/07/20 08:05 36.1 85 16 155/86 (109) 95 Room Air 07/07/20 04:00 37.3 72 16 148/85 (106) 95 Room Air 07/07/20 00:32 37.2 73 16 129/77 (94) 96 Room Air 07/06/20 19:52 37.3 78 16 124/60 (81) 93 Room Air 07/06/20 19:25 Room Air 07/06/20 18:53 95 Room Air 07/06/20 16:12 37.0 72 16 146/79 (101) 96 Room Air 07/06/20 14:45 36.8 07/06/20 14:14 36.8 I & O 07/07/20 07:00 Intake Total 4150 ml Output Total 4 ml Balance 4146 ml Capillary Refill : Less Than 3 SecondsLess Than 3 Seconds General Appearance: No Apparent Distress Neck: Normal Inspection, Non Tender; No Carotid Bruit Respiratory: Chest Non Tender, No Accessory Muscle Use, No Respiratory Distress Cardiovascular: Regular Rate, Rhythm, No Edema Peripheral Pulses: 2+ Carotid (R), 2+ Carotid (L), 2+ Dorsalis Pedis (R), 2+ Left Dors-Pedis (L), 2+ Radial Pulses (R), 2+ Radial Pulses (L) Gastrointestinal: tenderness (incisional, incision ) Extremity: Non Tender, No Pedal Edema Neurologic/Psychiatric: Alert, Normal Mood/Affect Skin: Normal Color, Warm/Dry Results Lab Laboratory Tests 07/07/20 05:30: White Blood Count 10.1, Red Blood Count 4.06L, Hemoglobin 12.0L, Hematocrit 36L, Mean Corpuscular Volume 87, Mean Corpuscular Hemoglobin 30, Mean Corpuscular Hemoglobin Concent 34, Red Cell Distribution Width 13.2, Platelet Count 125L, Mean Platelet Volume 11.4H, Neutrophils (%) (Auto) 74, Lymphocytes (%) (Auto) 13, Monocytes (%) (Auto) 12, Eosinophils (%) (Auto) 0, Basophils (%) (Auto) 0, Neutrophils # (Auto) 7.5, Lymphocytes # (Auto) 1.3, Monocytes # (Auto) 1.3H, Eosinophils # (Auto) 0.0, Basophils # (Auto) 0.0, Sodium Level 138, Potassium Level 4.3, Chloride Level 108H, Carbon Dioxide Level 26, Anion Gap 4L, Blood Urea Nitrogen 10, Creatinine 0.82, Estimat Glomerular Filtration Rate > 60, BUN/Creatinine Ratio 12, Glucose Level 94, Calcium Level 8.0L, Corrected Calcium 8.6, Total Bilirubin 0.9, Aspartate Amino Transf (AST/SGOT) 13, Alanine Aminotransferase (ALT/SGPT) 9, Alkaline Phosphatase 41, Total Protein 5.6L, Albumin 3.3 Microbiology 07/05/20 MRSA Screen - Final, Complete MRSA not isolated Assessment/Plan Assessment/Plan Assessment/Plan s/p right colon resection pain control Clinical Quality Measures DVT/VTE Risk/Contraindication: Risk Factor Score Per Nursin RFS Level Per Nursing on Admit: 4+=Very High KIRSTYWILLIS MORFIN DO 07/07/20 1558: Subjective Time Seen by a Provider: 12:56 Subjective/Events-last exam Pt seen and examined, states pain is improving. Pt denies flatus and BM. Review of Systems General: Fatigue Pulmonary: No Dyspnea, No Cough Cardiovascular: No: Chest Pain, Palpitations Gastrointestinal: Abdominal Pain; No: Nausea, Vomiting Objective Exam General Appearance: No Apparent Distress, WD/WN Respiratory: Chest Non Tender, Lungs Clear, No Accessory Muscle Use Cardiovascular: Regular Rate, Rhythm Gastrointestinal: soft, tenderness (incisional), other (incision is c/d/i) Assessment/Plan Assessment/Plan Assessment/Plan S/P R colectomy Pt encouraged to continue ambulating and using IS. Will continue clears until pt has some flatus. Supervisory-Addendum Brief Verification & Attestation Participated in pt care: history, MDM, physical Personally performed: history, MDM Care discussed with: Medical Student Procedures: n/a Verification and Attestation of Medical Student E/M Service A medical student performed and documented this service. I then reviewed and verified all information documented by the medical student and made modifications to such information, when appropriate. I personally performed a physical exam, medical decision making and then discussed any differences between the notes and made revisions as necessary to create one note. Willis Grady , 07/07/20 , 15:58 VIKTORIA MURGUIA MED STUDENT Jul 07, 2020 13:58 WILLIS GRADY DO Jul 07, 2020 15:58
[2020-07-08] MEDS: HYDROcodone/APAP 5 MG/325 MG (LORTAB) TAB PO PRN ×2 (03:59→13:39)
[2020-07-08 04:00] VITALS: BP 141/91
[2020-07-08 07:50] VITALS: BP 125/76
[2020-07-08] MEDS: RT-ALBUTEROL SULF 2.5 MG/3 ML PRE-MIX VIAL INH SCH (08:19)
--- NOTE | 2020-07-08 10:44 | Progress Note - Surgery ---
BLADEVIKTORIA MED STUDENT 07/08/20 1044: Subjective Date Seen by a Provider: Jul 08, 2020 Time Seen by a Provider: 08:35 Subjective/Events-last exam Patient states he feels great, has been able to walk and pain has improved since yesterday. He sates he has been able to walk more now and has had two bowel movements yesterday as well as one this morning. Incision has not been draining and reports minimal pain on medication around it. Objective Exam Vital Signs Date Time Temp Pulse Resp B/P (MAP) Pulse Ox O2 Delivery O2 Flow Rate FiO2 07/08/20 08:29 98 Room Air 07/08/20 07:50 36.9 76 16 125/76 (92) 98 Room Air 07/08/20 04:00 36.6 70 18 141/91 (108) 97 Room Air 07/07/20 23:35 37.3 83 16 136/81 (99) 95 Room Air 07/07/20 20:32 98 Room Air 07/07/20 20:00 37.1 77 16 155/86 (109) 95 Room Air 07/07/20 19:25 Room Air 07/07/20 16:00 36.9 76 16 137/92 (107) 96 07/07/20 11:36 36.4 62 15 182/84 (116) 96 Room Air I & O 07/08/20 07:00 Intake Total 1940 ml Output Total 200 ml Balance 1740 ml Capillary Refill : Less Than 3 SecondsLess Than 3 Seconds General Appearance: No Apparent Distress, WD/WN Neck: Normal Inspection, Non Tender; No Carotid Bruit Respiratory: Chest Non Tender, Lungs Clear, Normal Breath Sounds, No Accessory Muscle Use, No Respiratory Distress Cardiovascular: Regular Rate, Rhythm, No Edema, Normal Peripheral Pulses Peripheral Pulses: 2+ Carotid (R), 2+ Carotid (L), 2+ Dorsalis Pedis (R), 2+ Left Dors-Pedis (L), 2+ Radial Pulses (R), 2+ Radial Pulses (L) Gastrointestinal: soft, tenderness (incisional), other (incision is c/d/i) Extremity: Non Tender, No Pedal Edema Neurologic/Psychiatric: Alert, Normal Mood/Affect Skin: Normal Color, Warm/Dry Results Lab Microbiology 07/05/20 MRSA Screen - Final, Complete MRSA not isolated Assessment/Plan Assessment/Plan Assessment/Plan S/P R colectomy Clinical Quality Measures DVT/VTE Risk/Contraindication: Risk Factor Score Per Nursin RFS Level Per Nursing on Admit: 4+=Very High WILLIS THOMPSON DO 07/08/20 1158: Subjective Time Seen by a Provider: 10:04 Subjective/Events-last exam Pt seen and examined, states he is tolerating diet and having BM. Pain is well controlled. Review of Systems Cardiovascular: No: Chest Pain, Palpitations Gastrointestinal: No: Nausea, Vomiting Objective Exam General Appearance: No Apparent Distress, WD/WN Respiratory: Lungs Clear, Normal Breath Sounds, No Accessory Muscle Use, No R espiratory Distress Gastrointestinal: soft, tenderness (minimally at incision ), other (incision is c/d/i) Assessment/Plan Assessment/Plan Assessment/Plan S/P R colectomy D/C IV, D/C home Supervisory-Addendum Brief Verification & Attestation Participated in pt care: history, MDM, physical Personally performed: exam, history, MDM Care discussed with: Medical Student Procedures: n/a Verification and Attestation of Medical Student E/M Service A medical student performed and documented this service. I then reviewed and verified all information documented by the medical student and made modifications to such information, when appropriate. I personally performed a physical exam, medical decision making and then discussed any differences between the notes and made revisions as necessary to create one note. Willis Thompson , 07/08/20 , 11:57 VIKTORIA MURGUIA MED STUDENT Jul 08, 2020 10:44 WILLIS THOMPSON DO Jul 08, 2020 11:58
--- NOTE | 2020-07-08 11:07 | Progress Note - Hospitalist ---
Subjective HPI/CC On Admission Date Seen by Provider: Jul 08, 2020 Time Seen by Provider: 11:30 CC: Colon Polyp HPI: This is a 64yoWM that is s/p hepatic flexure adenoma resection and sister is at the bedside. He denies any current pain or nausea. Reviewed home meds and checked labs and images and conferred with RN. Subjective/Events-last exam Patient ready to go home No issues BM+ Review of Systems Gastrointestinal: Abdominal Pain Objective Exam Vital Signs Vital Signs Date Time Temp Pulse Resp B/P (MAP) Pulse Ox O2 Delivery O2 Flow Rate FiO2 07/08/20 14:00 37.0 74 18 145/84 98 Room Air 07/05/20 16:53 21 07/05/20 15:00 4 Capillary Refill : Less Than 3 SecondsLess Than 3 Seconds General Appearance: No Apparent Distress, WD/WN Respiratory: Chest Non Tender, Lungs Clear, Normal Breath Sounds, No Accessory Muscle Use, No Respiratory Distress Cardiovascular: Regular Rate, Rhythm, No Edema, No Gallop, No JVD, No Murmur, Normal Peripheral Pulses Results/Procedures Lab Patient resulted labs reviewed. Assessment/Plan Assessment and Plan Assess & Plan/Chief Complaint Assessment: Colon polyp Anemia Abdominal Pain Post op ileus Plan: Check labs in morning Monitor closely Pain control 07/06/20: Monitor white blood cell count Rest of labs stable Clear liquid diet 07/07/20: Ambulate Ileus management 07/08/20: DC home Diagnosis/Problems Diagnosis/Problems (1) Hypertension (2) HEPATIC FLEXURE TUBULAR ADENOMA Clinical Quality Measures DVT/VTE Risk/Contraindication: Risk Factor Score Per Nursin RFS Level Per Nursing on Admit: 4+=Very High KIMBERLY BECERRIL DO Jul 08, 2020 11:06
[2020-07-08 11:25] VITALS: BP 145/84
--- NOTE | 2020-07-08 11:52 | Discharge Inst-Surgical ---
Discharge Inst-Surgical Depart Medication/Instructions New, Converted or Re-Newed RX: Other Patient Instructions Follow up Appt: Make appointment for 1 week. [phone] Instructions: No lifting greater than 20 pounds. No strenuous activity. May shower in 24 hours, no tub bath or soaking. Use incentive spirometer at home as directed. No Smoking Skin/Wound Care: May remove bandages in am. You need to leave the Dermabond on incision it will fall off on it's own. Symptoms to Report: Appetite Changes, Extremity Discoloration, Numbness/Tingling, Swelling Increased, Bleeding Excessive, Eyesight Changes, Pain Increased, Urine Color Change, Constipation(Persistent), Fever over 101 degree F, Pain/Pressure in chest, Urinating Difficulty, Cough Up/Vomit Blood, Heart Beat Irreg/Pounding, Pain/Pressure in jaw, Cramps in feet or legs, Lightheadedness, Pain/Pressure in shoulder, Diarrhea(Persistent), Memory Changes Suddenly, Questions/Concerns, Weight gain consecutive days, Dizziness/Fainting, Nausea/Vomiting, Shortness of Breath, Weight gain over 2 pounds If questions or concerns contact your physician Or seek help at emergency department. Activity Activity as Tolerated: Yes Activity Instructions: Avoid Stress to Incision Driving Instructions: No Driving/Refer to Dr. De La Garza Discharge Diet: No Restrictions Diet After 24 Hours: Clear Liquid if Nauseous If Any Problems/Questions/Issu: Contact Your Physician, Go to Emergency Room Skin/Wound Care Infection Signs and Symptoms: Increased Redness, Foul Odor of Wound, Increased Drainage, Skin Itchy or Has a Rash, Increased Swelling, Temperature Above 101 F Bathing Instructions: Shower Stitches/[place]/Dermabond Dis: Care of PENELOPE Mendez DO Jul 08, 2020 11:52
--- NOTE | 2020-07-08 13:45 | NUR ---
DR. GRADY NOTIFIED OF PT. REQUESTING PAIN MED. ULTRAM CALLED INTO [facility] IN [place] PER DR. PERDUE ORDER'S.
[2020-07-08] MEDS ORDERED: TRAM-42 PO (13:58)
[2020-07-08 14:00] VITALS: BP 145/84
--- NOTE | 2020-07-08 14:00 | NUR ---
JUAQUIN ARAGON demonstrates understanding of discharge instructions and accurately returns instructions upon questioning. Copy of Post-Discharge Instructions given to PT. JUAQUIN ARAGON is able to manage continuing needs after discharge. Patients belongings returned to PT. Patient discharged from [facility] on 07/08/20 at 1400. JUAQUIN ARAGON left floor via W/C, accompanied by STAFF AND PER AUTO.
== END 2020-07-08 14:00 | disposition home or self-care (01) | DRG 330 ==
LOC: 4TH 09:00 → SURG 09:01 → 4TH 16:00
PROVIDERS: ADMIT Surgery; ATTEND Surgery
PROC: 0DTF0ZZ Resection of Right Large Intestine, Open Approach (ICD-10-PCS; principal; 2020-07-05 13:00)
DX: D12.3 Benign neoplasm of transverse colon (principal); K56.7 Ileus, unspecified; I10 Essential (primary) hypertension; I48.91 Unspecified atrial fibrillation; D64.9 Anemia, unspecified; Z87.891 Personal history of nicotine dependence
CPT/HCPCS: 36415; 80053; 85007; 85025; 85027; 86850; 86900; 86901; 87081; 94640; 94664; 94760